=== PATIENT | female | born 1935 | race Caucasian/White ===

== ENCOUNTER 2016-03-23 18:00 | Emergency (ER) | payer OTHER ==
[~2016-03-23] VITALS: Ht 175.3 cm; Wt 111.1 kg
[~2016-03-23 18:00] MED LIST: AMIODARONE HCL200 M1 PO; AMMONIUM LACTA140 GM TOP; AVELOX400 MG PO; BACTRIM 400-801 EACH PO; ESCITALOPRAM OX20 MG PO; FUROSEMIDE20 M1 PO; HYDROCHLOROTHIA25 M1 PO; LEVOTHYROXINE25 MCG PO; METOPROLOL SUCC50 M2 PO; NIZORAL120 ML TOP; PERCOCET 325 MG1 TA2 PO; PRADAXA150 M1 PO; SIMVASTATIN20 M2 PO; VESICARE10 MG PO
--- NOTE | 2016-03-23 18:30 | ED UPPER/LOWER EXTREMITY COMPL ---
History of Present Illness General Chief Complaint: Hip Injury Stated Complaint: FALL; HIP PAIN Source: patient Exam Limitations: no limitations Vital Signs & Intake/Output Vital Signs & Intake/Output Vital Signs Date Time Temp Pulse Resp B/P Pulse O2 O2 Flow FiO2 Ox Delivery Rate 03/23 2039 97.8 65 19 160/72 96 Room Air 03/23 1811 99.5 66 20 166/73 94 Room Air Allergies Coded Allergies: No Known Allergies (03/23/16) Reconcile Medications Amiodarone HCl 200 MG TABLET 0.5 TAB PO DAILY HEART (Reported) Ammonium Lactate 140 GM CREAM..G. 1 ARTURO TOP BID FEET (Reported) Dabigatran Etexilate Mesylate (Pradaxa 150 MG) 150 MG CAPSULE 1 CAP PO BID BLOOD THINNER (Reported) Escitalopram Oxalate 20 MG TABLET 1 TAB PO DAILY MENTAL HEALTH (Reported) Furosemide 20 MG TABLET 1 TAB PO DAILY DIURETIC (Reported) Hydrochlorothiazide 25 MG TABLET 1 TAB PO DAILY BP (Reported) Ketoconazole (Nizoral) 120 ML SHAMPOO 1 % TOP BID RASH Levothyroxine Sodium 25 MCG TABLET 1 TAB PO DAILY THYROID (Reported) Metoprolol Succinate 50 MG TAB.ER.24H 1 TAB PO DAILY BP (Reported) Oxycodone HCl 5 MG TABLET 1-2 TAB PO Q8P PRN PAIN Simvastatin (Simvastatin*) 20 MG TABLET 1 TAB PO QPM CHOLESTEROL (Reported) Solifenacin Succinate (Vesicare) 10 MG TABLET 1 TAB PO DAILY BLADDER ( Reported) Sulfamethoxazole/Trimethoprim (Bactrim 400-80 MG Tablet) 1 EACH TABLET 0.5 TAB PO DAILY PROPHYLAXIS (Reported) Triage Note: TRIAGE: PT TO ER WITH C/C L HIP PAIN X FEW DAYS. STATES SHE BRUISED IT WHEN MOVING A CHEST. 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 AFTER THAT COULD NOT TOLERATE WEIGHT BEARING. SAW DR LOPEZ ORTHOPEDIST YESTERDAY FOR KNEE PROBLEMS AND WAS GIVEN PRESCRIPTION YESTERDAY FOR ?PAIN MEDICATION, DROPPED IT OFF AT [facility] TODAY BUT DIDN'T PICK IT UP YET. MEDICATED WITH TYLENOL AT TRIAGE PER PROTOCOL AND PATIENT REQUEST. Triage Nurses Notes Reviewed? yes Onset: Abrupt Duration: week(s):, getting worse Timing: recent history Severity: moderate, severe Pain/Injury Location: Left: Hip. No Modifying Factors: none HPI: 80-year-old female comes into emergency room for further evaluation of left hip pain. Patient reports his been going on for about a week. Patient reports that she was pushing a dresser and she used her left hip and since then was having some pain. Patient reports that she was able to ambulate as normal and does her water aerobics. Patient reports that tonight she bent down to supervisor opening and picking a 28 pound dog. When she lifted the dog she felt a pain in her left hip. Denies any falls. Difficulty ambulating since then. Sharp. (MICAELA BOWEN) Past History Travel History Traveled to [place] past 21 day No Medical History Any Pertinent Medical History? 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 No (MICAELA BOWEN) Review of Systems Review of Systems Constitutional: Reports: no symptoms. EENTM: Reports: no symptoms. Respiratory: Reports: no symptoms. Cardiovascular: Reports: no symptoms. Gastrointestinal/Abdominal: Reports: no symptoms. Genitourinary: Reports: no symptoms. Musculoskeletal: Reports: see HPI. Skin: Reports: no symptoms. Neurological/Psychological: Reports: no symptoms. Hematologic/Endocrine: Reports: no symptoms. Immunological: Reports: no symptoms. All Other Systems: Reviewed and Negative (MICAELA BOWEN) Physical Exam Physical Exam General Appearance: well developed/nourished, mild distress Head: atraumatic Eyes: Bilateral: normal appearance. Ears, Nose, Throat: normal ENT inspection, hearing grossly normal Neck: normal inspection Cardiovascular/Respiratory: no respiratory distress Back: normal inspection Hip Left: soft tissue tenderness, limited range of motion Knee Left: normal range of motion Neurologic/Tendon: normal sensation, normal motor functions, normal tendon functions, responds to pain, no evidence tendon injury, no pulse deficit Skin: intact, normal color, warm/dry Lymphatic: no anterior cervical damaso (MICAELA BOWEN) Progress Differential Diagnosis: contusion, dislocation, fracture, gout, septic arthritis , sprain, tendon injury Plan of Care: Orders Procedure Date/time Status XRY-LUMBOSACRAL SPINE AP & LAT 03/23 1827 Active XRY-HIP 2-3 VIEWS, LEFT 03/23 1827 Active Diagnostic Imaging: Viewed by Me: Radiology Read. Discussed w/RAD: Radiology Read. Radiology Impression: EXAM TYPE: RAD - XRY-HIP 2-3 VIEWS, LEFT EXAMINATION: XR HIP, LEFT CLINICAL INFORMATION: Left hip pain. COMPARISON: None. TECHNIQUE: AP and frog-leg lateral of the left hip. FINDINGS: No acute osseous abnormality involving the left hip. 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 No periprosthetic fractures. No perihardware lucencies to suggest mechanical hardware complications. No appreciable dislocation of the left hip. 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 No mechanical hardware complications. No periprosthetic fractures. No appreciable dislocation of the left hip. DICTATED BY: PRATIK HOLLIDAY MD DATE/TIME DICTATED: 03/23/161947 BOILER OPERATOR HELPER:[email or web address] DATE/TIME TRANSCRIBED:03/23/161947 , EXAM TYPE: RAD - XRY-HIP 2-3 VIEWS, LEFT EXAMINATION: XR HIP, LEFT CLINICAL INFORMATION: Left hip pain. COMPARISON: None. TECHNIQUE: AP and frog-leg lateral of the left hip. FINDINGS: No acute osseous abnormality involving the left hip. 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 No periprosthetic fractures. No perihardware lucencies to suggest mechanical hardware complications. No appreciable dislocation of the left hip. 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 No mechanical hardware complications. No periprosthetic fractures. No appreciable dislocation of the left hip. DICTATED BY: PARADISE HOLLIDAY MDENNA DATE/TIME DICTATED:03/23/161947 BOILER OPERATOR HELPER:[email or web address] DATE/TIME TRANSCRIBED:03/23/161947 Comments: 03/23/2016 8:51:56 PM Patient is able to ambulate after oxycodone. Patient feels much better. Nontoxic-appearing. In no apparent distress. Patient seen by Dr. cameron. There were no falls. Patient counseled on oxycodone and side effects. Return if any other concerns. (MI FU,MICAELA) Departure Departure Disposition: HOME OR SELF CARE Condition: Stable Clinical Impression Primary Impression: Low back strain Secondary Impressions: Strain of left hip Referrals: LINDEN FENG,DORIS Shen (PCP/Family) Additional Instructions: Take oxycodone as prescribed. Rest. Follow-up with your primary care doctor and your orthopedic doctor. Return if any other concerns. Please go over all results of today's visit with your primary care doctor. Contact your primary care doctor to let them know you were here in the emergency room. There may be nonspecific findings which may not be related to your visit today here in the emergency room but may require further evaluation and chronic monitoring by your primary care doctor. If you had a laceration today the chance of foreign body always remains. You should follow-up with your primary care doctor for recheck in 3-5 days for a wound check. If you had an x-ray done there is a chance that a fracture could have been missed on initial read and you should follow-up with your primary care doctor for repeat x-rays if symptoms persist. If your blood pressure was elevated here in the emergency room please have rechecked by her primary care doctor within the next 48 hours by your primary care doctor. If you were prescribed a narcotic here in the emergency room or any type of controlled substances you're not allowed to drive while taking this medication or operate any type of heavy machinery. Narcotics can make you feel lightheaded dizziness nausea and can cause constipation. You may need to supervisor opening and picking a stool softener. Thank you for choosing [facility] emergency room. Please return to the emergency room immediately if you have any other concerns worsening of symptoms. Departure Forms: Customer Survey General Discharge Information Prescriptions: Current Visit Scripts Oxycodone HCl 1-2 TAB PO Q8P PRN PAIN #15 TAB (MICAELA BOWEN) PA/VIDEOGAME DESIGNER Co-Sign Statement Statement: ED Attending supervision documentation- [X] I saw and evaluated the patient. I have also reviewed all the pertinent lab results and diagnostic results. I agree with the findings and the plan of care as documented in the PA's/VIDEOGAME DESIGNER's documentation. [X] I have reviewed the ED Record and agree with the PA's/VIDEOGAME DESIGNER's documentation. [] Additions or exceptions (if any) to the PAs/VIDEOGAME DESIGNER's note and plan are summarized below: [] (SHANELLE FENG,ODILON)
--- NOTE | 2016-03-23 19:53 | RADIOLOGY REPORT ---
EXAMINATION: XR HIP, LEFT CLINICAL INFORMATION: Left hip pain. COMPARISON: None. TECHNIQUE: AP and frog-leg lateral of the left hip. FINDINGS: No acute osseous abnormality involving the left hip. 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 No periprosthetic fractures. No perihardware lucencies to suggest mechanical hardware complications. No appreciable dislocation of the left hip. 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 No mechanical hardware complications. No periprosthetic fractures. No appreciable dislocation of the left hip.
--- NOTE | 2016-03-23 19:55 | RADIOLOGY REPORT ---
EXAMINATION: XR LUMBOSACRAL SPINE CLINICAL INFORMATION: Left hip pain. COMPARISON: None. TECHNIQUE: AP and lateral views of the lumbosacral spine were obtained. FINDINGS: AP and lateral views of the lumbar spine demonstrate severe multilevel degenerative disc disease and facet arthrosis of the lumbar spine, characterized by intervertebral disc space narrowing, endplate sclerosis and juxta marginal endplate osteophyte formation. Degenerative changes appear most significant at L1-L2. There is chronic appearing compression deformity of the L1 vertebral body with less than 25% disc height loss centrally. There is mild right convex curvature of the lumbar spine. No acute lumbar vertebral compression deformities are noted. There is extensive atherosclerosis of the imaged infrarenal abdominal aorta. IMPRESSION: Severe multilevel degenerative disc disease and facet arthrosis of the imaged lumbar spine without visible acute vertebral compression deformity or subluxation. Chronic appearing compression deformity involving the L1 vertebral body with less than 25% disc height loss centrally.
[2016-03-23] MEDS ORDERED: OXYCODONE HCL5 M1 PO (20:21)
[2016-03-23 20:40] VITALS: BP 160/72
== END 2016-03-23 20:41 ==
LOC: ERH 18:00
DX: S39.012A Strain of muscle, fascia and tendon of lower back, initial encounter (principal); S76.012A Strain of muscle, fascia and tendon of left hip, initial encounter; X58.XXXA Exposure to other specified factors, initial encounter
CPT/HCPCS: 72100; 73502-LT

== ENCOUNTER 2016-03-29 15:40 | Emergency (ER) | payer OTHER ==
[~2016-03-29] VITALS: Ht 175.3 cm; Wt 111.1 kg
[~2016-03-29 15:40] MED LIST changes: +OXYCODONE HCL5 M1 PO
[2016-03-29 17:32] LABS: ABSOLUTE BASOPHIL COUNT 0 /CUMM (0.0-0.2); ABSOLUTE EOSINOPHIL COUNT 0.1 /CUMM (0.0-0.7); ABSOLUTE GRANULOCYTE CT 3.6 /CUMM (1.4-6.5); ABSOLUTE LYMPH COUNT 1.7 /CUMM (1.2-3.4); ABSOLUTE MONOCYTE COUNT 0.4 /CUMM (0.10-0.60); BASOPHIL % 0.5 % (0.0-2.0); EOSINOPHIL % 1.3 % (0-5); GRANULOCYTE % 61.8 % (42.2-75.2); HEMATOCRIT 39.7 % (37-47); MEAN CORPUSCULAR HGB 31.1 PG (27.0-31.0); MEAN CORPUSCULAR HGB CONC 33.6 G/DL (33.0-37.0); MEAN CORPUSCULAR VOLUME 92.4 FL (81.0-99.0); MEAN PLATELET VOLUME 7.3 FL (7.4-10.4); PLATELET COUNT 157 /CUMM (130-400); RBC DISTRIBUTION WIDTH 13.3 % (11.5-14.5); RED BLOOD CELL CT 4.29 /CUMM (4.20-5.40); WHITE BLOOD CELL COUNT 5.8 /CUMM (4.8-10.8)
--- NOTE | 2016-03-29 17:41 | ED NECK/BACK PAIN COMPLAINT ---
History of Present Illness General Chief Complaint: Low Back Pain/Injury Stated Complaint: NO RELIEF OF BACK PAIN (SEEN 03/25) Source: patient, family Exam Limitations: no limitations Vital Signs & Intake/Output Vital Signs & Intake/Output Vital Signs Date Time Temp Pulse Resp B/P Pulse O2 O2 Flow FiO2 Ox Delivery Rate 03/29 1906 97.5 66 18 174/74 94 03/29 1551 99.2 60 20 136/73 98 Room Air Allergies Coded Allergies: No Known Allergies (03/23/16) Reconcile Medications Amiodarone HCl 200 MG TABLET 0.5 TAB PO DAILY HEART (Reported) Ammonium Lactate 140 GM CREAM..G. 1 ARTURO TOP BID FEET (Reported) Dabigatran Etexilate Mesylate (Pradaxa 150 MG) 150 MG CAPSULE 1 CAP PO BID BLOOD THINNER (Reported) Escitalopram Oxalate 20 MG TABLET 1 TAB PO DAILY MENTAL HEALTH (Reported) Furosemide 20 MG TABLET 1 TAB PO DAILY DIURETIC (Reported) Hydrochlorothiazide 25 MG TABLET 1 TAB PO DAILY BP (Reported) Ketoconazole (Nizoral) 120 ML SHAMPOO 1 % TOP BID RASH Levothyroxine Sodium 25 MCG TABLET 1 TAB PO DAILY THYROID (Reported) Metoprolol Succinate 50 MG TAB.ER.24H 1 TAB PO DAILY BP (Reported) Nitrofurantoin Monohyd/M-Cryst (Macrobid 100 MG Capsule) 100 MG CAPSULE 1 CAP PO BID UTI with food Oxycodone HCl 5 MG TABLET 1-2 TAB PO Q8P PRN PAIN Oxycodone HCl/Acetaminophen (Percocet 5-325 MG Tablet) 5 MG-325 MG TABLET 1-2 TAB PO Q8P PRN PAIN Simvastatin (Simvastatin*) 20 MG TABLET 1 TAB PO QPM CHOLESTEROL (Reported) Solifenacin Succinate (Vesicare) 10 MG TABLET 1 TAB PO DAILY BLADDER ( Reported) Sulfamethoxazole/Trimethoprim (Bactrim 400-80 MG Tablet) 1 EACH TABLET 0.5 TAB PO DAILY PROPHYLAXIS (Reported) Triage Note: PT TO ED C/O LEFT HIP/BACK PAIN. PT WAS SEEN MONDAY FOR SAME, WAS ADVISED TO BE ADMITTED AND PT DECLINED. PT RETURNS TODAY FOR CONTINUED PAIN. PAIN IS WORSE WITH AMBULATION. HAS BEEN TAKING PO PAIN MEDS WITH RELIEF. Triage Nurses Notes Reviewed? yes Onset: Abrupt Duration: week(s):, constant Timing: recent history Quality/Severity: moderate, severe Location: lumbar spine HPI: 80-year-old female comes into emergency room for complaints of left lower back pain and left hip pain this been going on over the past week. Patient was seen here the other day and had x-rays done. Patient reports that the oxycodone helps with her pain. Patient reports that she initially had injured it when she was moving a dresser with her left hip. Patient reports that she had been picked up a dog and felt a pop in the left side of her lower back and hip which pushed her over the edge. Patient has been having pain since then. Denies any abdominal pain chest pain shortness of breath. Denies any other associated symptoms. (MICAELA BOWEN) Past History Travel History Traveled to [place] past 21 day No Medical History Any Pertinent Medical History? 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 No (MICAELA BOWEN) Review of Systems Review of Systems Constitutional: Reports: no symptoms. Eyes: Reports: no symptoms. Ears, Nose, Throat, Mouth: Reports: no symptoms. Respiratory: Reports: no symptoms. Cardiovascular: Reports: no symptoms. Gastrointestinal/Abdominal: Reports: no symptoms. Musculoskeletal: Reports: see HPI. Skin: Reports: no symptoms. Neurological/Psychological: Reports: no symptoms. All Other Systems: Reviewed and Negative (MICAELA BOWEN) Physical Exam Physical Exam General Appearance: well developed/nourished, mild distress Head: atraumatic Eyes: Bilateral: normal appearance. Ears, Nose, Throat, Mouth: hearing grossly normal, moist mucous membrane Neck: normal inspection, full range of motion Respiratory: no respiratory distress Cardiovascular: regular rate/rhythm Back: normal inspection, TENDERNESS LEFT LOWER BACK,FULL RANGE OF MOTION OF LEFT HIP, Extremities: normal range of motion Motor: Deficit L4 Right: No Deficit L4 Left: No Deficit L5 Right: No Deficit L5 Left: No Deficit S1 Right: No Deficit S1 Right: No Neurologic/Psych: awake, alert, oriented x 3, normal mood/affect Skin: intact, normal color, warm/dry (MICAELA BOWEN) Progress Differential Diagnosis: cauda equina syn, herniated disc, myofascial strain, pyelo/UTI, sciatica, spinal cord inj, thoracic outlet syn, T/L spine injury, ureterolithiasis Plan of Care: Orders Procedure Date/time Status Add-on Test (ER Only) 03/29 1840 Active CULTURE,URINE 03/29 1800 Active TOTAL TRIODOTHYROXINE 03/29 172 Complete COMPREHENSIVE METABOLIC PANEL 03/29 1725 Complete TSH REFLEX 03/29 172 Complete FREE T4 03/29 1721 Complete URINALYSIS 03/29 1715 Complete CBC WITHOUT DIFFERENTIAL 03/29 1715 Complete Laboratory Tests 03/29/16 1800: Urine Color YEL, Urine Clarity HAZY H, Urine pH 6.0, Ur Specific Amory 1.015, Urine Protein NEG, Urine Ketones NEG, Urine Nitrite NEG, Urine Bilirubin NEG, Urine Urobilinogen 0.2, Ur Leukocyte Esterase MOD H, Ur Microscopic SEDIMENT EXAMINED, Urine RBC 5-10 H, Urine WBC > 75 H, Ur Epithelial Cells MANY H, Urine Hemoglobin MOD H, Urine Glucose NEG 03/29/161725: Anion Gap 11, Estimated GFR 53 L, BUN/Creatinine Ratio 18.0, Glucose 89, Calcium 8.6, Total Bilirubin 0.8, AST 64 H, ALT 34, Alkaline Phosphatase 55, Total Protein 6.9, Albumin 4.0, Globulin 2.9, Albumin/Globulin Ratio 1.4, Free T4 1.42, Total T3 1.02, TSH &T3 &Free T4 Intrp 8.000 H, CBC w Diff NO MAN DIFF REQ, RBC 4.29, MCV 92.4, MCH 31.1 H, RDW 13.3, MPV 7.3 L, Gran % 61.8, Lymphocytes % 28.6, Monocytes % 7.8, Eosinophils % 1.3, Basophils % 0.5, Absolute Granulocytes 3.6, Absolute Lymphocytes 1.7, Absolute Monocytes 0.4, Absolute Eosinophils 0.1, Absolute Basophils 0, PUBS MCHC 33.6 03/29/161715: Sodium Cancelled, Potassium Cancelled, Chloride Cancelled, Carbon Dioxide Cancelled, Anion Gap Cancelled, BUN Cancelled, Creatinine Cancelled, BUN/ Creatinine Ratio Cancelled, Glucose Cancelled, Calcium Cancelled, Total Bilirubin Cancelled, AST Cancelled, ALT Cancelled, Alkaline Phosphatase Cancelled, Total Protein Cancelled, Albumin Cancelled, Globulin Cancelled, Albumin/Globulin Ratio Cancelled Microbiology 03/29 1800 URINE ROUT: Urine Culture - RECD Diagnostic Imaging: Viewed by Me: CT Scan. Discussed w/RAD: CT Scan. Radiology Impression: SERVICE DATE: 03/29/16 EXAM TYPE: CAT - CT ABD & PELVIS W/O IV CONTRAS EXAMINATION: CT ABDOMEN AND PELVIS WITHOUT CONTRAST CLINICAL INFORMATION: Left hip and low back pain. COMPARISON: Lumbar spine and hip radiograph from 03/23/2016. TECHNIQUE: Contiguous axial thin section helical images of the abdomen and pelvis were performed without oral or IV contrast. The data set was reformatted in the coronal and sagittal planes and reviewed on an independent workstation. DLP: 1097 mGy-cm. FINDINGS: There is mild dependent bibasilar atelectasis. There is scarring or atelectasis within the posterior inferior segment of the lingula. The visualized lung bases are otherwise clear. The visualized portions of the heart are unremarkable. There is a small hiatal hernia. The liver is of normal size and attenuation without intrahepatic biliary ductal dilation. There are several hepatic cysts present. The largest is within the dome of the liver and measures approximately 4.3 cm. A normal gallbladder is identified. There is no wall thickening or discernible pericholecystic fluid. The spleen, pancreas, adrenal glands are unremarkable. Both kidneys are of normal size and attenuation without hydronephrosis. Within the interpole region of the right kidney, there is a 3 mm nonobstructive calculus. Within the upper pole of the left kidney, there is a 1 mm nonobstructive calculus. There is no abdominal free fluid. There is neither mesenteric nor retroperitoneal lymphadenopathy. There is sigmoid diverticulosis without evidence of diverticulitis. Otherwise, unremarkable unopacified loops of small and large bowel are identified. There is no pelvic free fluid. The urinary bladder is unremarkable. There is neither pelvic nor inguinal lymphadenopathy. Bone windows : Neither sclerotic nor lytic bone lesions are identified. Moderate degenerative changes present within the lumbar spine with disc height loss and anterior osteophyte formation. Bilateral hip prostheses are intact. There are healed posterior lower left rib fractures. IMPRESSION: 3 mm nonobstructive right renal calculus. 1 mm nonobstructive left upper pole renal calculus. Sigmoid diverticulosis without evidence of diverticulitis. Small hiatal hernia. Intact bilateral hip prostheses. DICTATED BY: ANTON CAMACHO MD DATE/TIME DICTATED:1824 WAITER/WAITRESS ECONOMY CLASS:ROSEMARIE (MI PA,[place]) Departure Departure Disposition: HOME OR SELF CARE Condition: Stable Clinical Impression Primary Impression: Arthritis Secondary Impressions: Back pain, UTI (urinary tract infection) Referrals: DORIS CHEATHAM MD (PCP/Family) Additional Instructions: Take Percocet as prescribed. Follow-up with orthopedic doctor provided. Return if any concerns worsening symptoms. Take Macrobid as prescribed. Please go over all results of today's visit with your primary care doctor. Contact your primary care doctor to let them know you were here in the emergency room. There may be nonspecific findings which may not be related to your visit today here in the emergency room but may require further evaluation and chronic monitoring by your primary care doctor. If you had a laceration today the chance of foreign body always remains. You should follow-up with your primary care doctor for recheck in 3-5 days for a wound check. If you had an x-ray done there is a chance that a fracture could have been missed on initial read and you should follow-up with your primary care doctor for repeat x-rays if symptoms persist. If your blood pressure was elevated here in the emergency room please have rechecked by her primary care doctor within the next 48 hours by your primary care doctor. If you were prescribed a narcotic here in the emergency room or any type of controlled substances you're not allowed to drive while taking this medication or operate any type of heavy machinery. Narcotics can make you feel lightheaded dizziness nausea and can cause constipation. You may need to picking machine operator a stool softener. Thank you for choosing [facility] emergency room. Please return to the emergency room immediately if you have any other concerns worsening of symptoms. Departure Forms: Customer Survey General Discharge Information Prescriptions: Current Visit Scripts Oxycodone HCl/Acetaminophen (Percocet 5-325 MG Tablet) 1-2 TAB PO Q8P PRN PAIN #20 TAB Nitrofurantoin Monohyd/M-Cryst (Macrobid 100 MG Capsule) 1 CAP PO BID #14 CAP with food Comments 03/29/2016 7:31:39 PM Pain is consistent with musculoskeletal pain. Patient started on oral antibiotic even though she is not having symptoms of urinary tract infection. Urine culture sent. No CVA tenderness. No fever. No concern for pyelonephritis. Pain is in left lower hip region. Reproducible. Consistent with muscle skeletal pain. Patient seen by Dr. Quintero. (MICAELA BOWEN) PA/ROUTE SALES MANAGER Co-Sign Statement Statement: ED Attending supervision documentation- [x] I saw and evaluated the patient. I have also reviewed all the pertinent lab results and diagnostic results. I agree with the findings and the plan of care as documented in the PA's/ROUTE SALES MANAGER's documentation. [] I have reviewed the ED Record and agree with the PA's/ROUTE SALES MANAGER's documentation. [] Additions or exceptions (if any) to the PAs/ROUTE SALES MANAGER's note and plan are summarized below: [] (CHAS QUINTERO DO
--- NOTE | 2016-03-29 18:33 | CT SCAN REPORT ---
EXAMINATION: CT ABDOMEN AND PELVIS WITHOUT CONTRAST CLINICAL INFORMATION: Left hip and low back pain. COMPARISON: Lumbar spine and hip radiograph from 03/23/2016. TECHNIQUE: Contiguous axial thin section helical images of the abdomen and pelvis were performed without oral or IV contrast. The data set was reformatted in the coronal and sagittal planes and reviewed on an independent workstation. DLP: 1097 mGy-cm. FINDINGS: There is mild dependent bibasilar atelectasis. There is scarring or atelectasis within the posterior inferior segment of the lingula. The visualized lung bases are otherwise clear. The visualized portions of the heart are unremarkable. There is a small hiatal hernia. The liver is of normal size and attenuation without intrahepatic biliary ductal dilation. There are several hepatic cysts present. The largest is within the dome of the liver and measures approximately 4.3 cm. A normal gallbladder is identified. There is no wall thickening or discernible pericholecystic fluid. The spleen, pancreas, adrenal glands are unremarkable. Both kidneys are of normal size and attenuation without hydronephrosis. Within the interpole region of the right kidney, there is a 3 mm nonobstructive calculus. Within the upper pole of the left kidney, there is a 1 mm nonobstructive calculus. There is no abdominal free fluid. There is neither mesenteric nor retroperitoneal lymphadenopathy. There is sigmoid diverticulosis without evidence of diverticulitis. Otherwise, unremarkable unopacified loops of small and large bowel are identified. There is no pelvic free fluid. The urinary bladder is unremarkable. There is neither pelvic nor inguinal lymphadenopathy. Bone windows: Neither sclerotic nor lytic bone lesions are identified. Moderate degenerative changes present within the lumbar spine with disc height loss and anterior osteophyte formation. Bilateral hip prostheses are intact. There are healed posterior lower left rib fractures. IMPRESSION: 3 mm nonobstructive right renal calculus. 1 mm nonobstructive left upper pole renal calculus. Sigmoid diverticulosis without evidence of diverticulitis. Small hiatal hernia. Intact bilateral hip prostheses.
[2016-03-29] MEDS ORDERED: PERCOCET 5-3251 EACH PO (18:59)
[2016-03-29 19:06] VITALS: BP 174/74
[2016-03-29] MEDS ORDERED: MACROBID 100 M100 MG PO (19:12)
== END 2016-03-29 19:53 ==
LOC: ERH 15:40
PROVIDERS: Physician Assistant Medical
DX: N39.0 Urinary tract infection, site not specified (principal); M19.90 Unspecified osteoarthritis, unspecified site; M54.5 Low back pain
CPT/HCPCS: 74176; 81001; 87086

== ENCOUNTER 2016-07-10 09:36 | Inpatient (IN) | payer OTHER ==
[~2016-07-10] VITALS: Ht 175.3 cm; Wt 101.2 kg
[~2016-07-10 09:36] MED LIST changes: +MACROBID 100 M100 MG PO; +PERCOCET 5-3251 EACH PO
--- NOTE | 2016-07-10 09:45 | NUR ---
DR WORTHINGTON AT BEDSIDE, RT AT BEDSIDE
--- NOTE | 2016-07-10 09:45 | NUR ---
PT BIBA FROM HOME WITH C/O INCREASING SOB SINCE LAST NIGHT. PER EMS UPON ARRIVAL THERE O2 SATS IN 70'S. PT PLACED ON BIPAP BY EMS WITH O2 SATS IMPROVING TO 95%. PT HAS BILATERAL RALES/RHONCHI T/O LUNG KOO
--- NOTE | 2016-07-10 09:51 | ED DYSPNEA/ASTHMA COMPLAINT ---
History of Present Illness General Chief Complaint: Dyspnea (COPD, CHF, Other) Stated Complaint: BIBA DYSPNEA Source: patient Exam Limitations: clinical condition, SEVERE DYSPNEA Vital Signs & Intake/Output Vital Signs & Intake/Output Vital Signs Date Time Temp Pulse Resp B/P B/P Pulse O2 O2 Flow FiO2 Mean Ox Delivery Rate 07/11 0845 57 132/68 07/11 0844 57 132/68 07/11 0809 99.0 57 20 132/68 96 Nasal 3.0L Cannula 07/11 0040 76 96 07/11 0000 BIPAP 40% 07/10 2253 98.4 60 20 104/62 98 BIPAP 40% 07/10 2112 66 120/68 07/10 1600 Nasal 3.0L Cannula 07/10 1548 97.8 70 18 138/66 96 07/10 1408 Nasal 3.0L Cannula 07/10 1358 67 96 07/10 1356 97.6 69 18 151/78 98 Nasal 3.0L Cannula 07/10 1248 68 20 178/80 100 BIPAP 40% 07/10 1226 67 100 07/10 1212 99.1 67 20 166/78 100 BIPAP 40% ED Intake and Output 07/11 0000 07/10 1200 Intake Total 610 Output Total 2600 50 Balance -1989 Intake, IV 10 Intake, Oral 600 Output, Urine 2600 50 Patient 235 lb Weight Weight Reported by Patient Measurement Method Allergies Coded Allergies: No Known Allergies (03/23/16) Reconcile Medications Amiodarone HCl 200 MG TABLET 1 TAB PO DAILY HEART (Reported) Ammonium Lactate 140 GM CREAM..G. 1 ARTURO TOP BID FEET (Reported) Dabigatran Etexilate Mesylate (Pradaxa 150 MG) 150 MG CAPSULE 1 CAP PO BID BLOOD THINNER (Reported) Escitalopram Oxalate 20 MG TABLET 1 TAB PO DAILY MENTAL HEALTH (Reported) Furosemide 20 MG TABLET 1 TAB PO DAILY DIURETIC (Reported) Hydrochlorothiazide 25 MG TABLET 1 TAB PO DAILY BP (Reported) Ketoconazole (Nizoral) 120 ML SHAMPOO 1 % TOP BID RASH Levothyroxine Sodium 25 MCG TABLET 2 TAB PO DAILY THYROID (Reported) Metoprolol Succinate 50 MG TAB.ER.24H 1 TAB PO DAILY BP (Reported) Nitrofurantoin Monohyd/M-Cryst (Macrobid 100 MG Capsule) 100 MG CAPSULE 1 CAP PO BID UTI with food Oxycodone HCl 5 MG TABLET 1-2 TAB PO Q8P PRN PAIN Oxycodone HCl/Acetaminophen (Percocet 5-325 MG Tablet) 5 MG-325 MG TABLET 1-2 TAB PO Q8P PRN PAIN Simvastatin (Simvastatin*) 20 MG TABLET 1 TAB PO QPM CHOLESTEROL (Reported) Solifenacin Succinate (Vesicare) 10 MG TABLET 1 TAB PO DAILY BLADDER ( Reported) Sulfamethoxazole/Trimethoprim (Bactrim 400-80 MG Tablet) 1 EACH TABLET 0.5 TAB PO DAILY PROPHYLAXIS (Reported) Triage Nurses Notes Reviewed? yes HPI: Patient presents for evaluation of severe shortness of breath. Patient found by paramedics with an oxygen saturation in the low 70s. On presentation to the emergency department the patient is on a BiPAP mask and consequently history taking is extremely limited. The patient indicates however that her breathing has improved. Past History Travel History Traveled to [place] past 21 day No Medical History Any Pertinent Medical History? 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 No Review of Systems Review of Systems Constitutional: Reports: no symptoms. EENTM: Reports: no symptoms. Respiratory: Reports: no symptoms. Cardiovascular: Reports: no symptoms. GI: Reports: no symptoms. Genitourinary: Reports: no symptoms. Musculoskeletal: Reports: no symptoms. Skin: Reports: no symptoms. Neurological/Psychological: Reports: no symptoms. Hematologic/Endocrine: Reports: no symptoms. Immunologic/Allergic: Reports: no symptoms. All Other Systems: Reviewed and Negative Physical Exam Physical Exam Respiratory: SEE BELOW Comments: Gen.: Well-nourished, well-developed, severe respiratory distress. Head: Normocephalic, atraumatic. Eyes: Mild lid swelling Ears: Normal inspection bilaterally Nose: Normal inspection Throat/mouth : Tacky mucosa Neck: Supple, full range of motion, no goiter, no JVD Heart: Regular rate and rhythm Lungs: Diffuse rales and rhonchi globally diminished air entry Chest: Nontender Back: Normal range of motion Abdomen: Soft, nondistended, normal bowel sounds Extremities: Normal range of motion grossly, equal radial pulses, no cyanosis, bilateral 2+ lower extremity pitting edema with chronic skin changes (no apparent cellulitis) Neurologic: Cranial nerves grossly intact, Skin: warm and dry Psychiatric: Unable to assess Core Measures ACS in differential dx? No Severe Sepsis Present: No Septic Shock Present: No Progress Differential Diagnosis: asthma, AMI, bronchitis, CHF, COPD, pneumonia, unstable angina Plan of Care: Orders Procedure Date/time Status CBC WITHOUT DIFFERENTIAL 07/12 0600 Active BASIC ELECTROLYTES PLUS BUN&CR 07/12 0600 Active Heart Healthy Diet 07/11 L Complete Heart Healthy Diet 07/11 D Active BLOOD CULTURE 07/11 0842 Active TROPONIN LEVEL 07/11 0640 Complete CBC WITHOUT DIFFERENTIAL 07/11 0600 Complete BASIC ELECTROLYTES PLUS BUN&CR 07/11 0600 Complete Lab Add-on Test 07/11 UNK Active Heart Healthy Diet 07/10 D Complete TROPONIN LEVEL 07/10 2200 Complete EKG 07/10 2200 Active CULTURE,URINE 07/10 1822 Active TROPONIN LEVEL 07/10 1600 Complete EKG 07/10 1600 Active Dwyer, Insertion/Removal/Asses 07/10 1454 Active Weight 07/10 1342 Active Vital Signs 07/10 1339 Active Teach/Educate 07/10 1339 Active Pain Treatment and Response 07/10 1339 Active Nutritional Intake, Monitor 07/10 1339 Active Isolation 07/10 1339 Active Intake & Output 07/10 1339 Active Patient Care Conference 07/10 1339 Active Activity/Ambulation 07/10 1339 Active Pathway - chart 07/10 1247 Active House Staff 07/10 1247 Active Patient Data 07/10 1247 Active Patient Data 07/10 1205 Active Misc Message 07/10 1132 Active ED Holding Orders 07/10 1132 Active Vital Signs 07/10 1132 Active Code Status 07/10 1132 Active Intake & Output 07/10 0958 Active OXYGEN SETUP (GEN) 07/10 UNK Complete VTE Mechanical Prophylaxis 07/10 UNK Complete Telemetry/Condemnation Engineer 07/10 UNK Active Current Medications Sig/Allison Start time Last Medication Dose Stop Time Status Admin Ceftriaxone Sodium 1,000 MG DAILY 07/11 1000 AC (Rocephin) Escitalopram Oxalate 20 MG DAILY 07/11 1000 AC 07/11 (Lexapro) 0844 Omeprazole 20 MG DAILY AC 07/11 1000 AC (Prilosec) Furosemide 40 MG 7:30 AM, & 4:30 PM 07/11 0900 AC 07/11 (Lasix) 1041 Docusate Sodium 100 MG BID PRN 07/11 0845 AC 07/11 (Colace) 0843 Levothyroxine Sodium 0.05 MG DAILY AC 07/11 0700 AC 07/11 (Synthroid) 0508 Atorvastatin Calcium 10 MG 1700 07/10 1700 AC 07/10 (Lipitor) 1722 Metoprolol Tartrate 50 MG BID 07/10 1349 AC 07/11 (Lopressor) 0844 Dabigatran 150 MG BID 07/10 1346 AC 07/11 (PRADAXA) 0845 Amiodarone HCl 200 MG DAILY 07/10 1345 AC 07/11 (Cordarone) 0845 Acetaminophen 650 MG Q6P PRN 07/10 1245 AC (Tylenol) Laboratory Tests 07/11/16 0640: Anion Gap 7, Estimated GFR 60, BUN/Creatinine Ratio 25.6 H, Troponin I 0.12 *H, CBC w Diff NO MAN DIFF REQ, RBC 3.66 L, MCV 90.7, MCH 30.5, RDW 14.9 H, MPV 8.0, Gran % 59.9, Lymphocytes % 29.0, Monocytes % 8.7, Eosinophils % 1.9, Basophils % 0.5, Absolute Granulocytes 3.2, Absolute Lymphocytes 1.6, Absolute Monocytes 0.5, Absolute Eosinophils 0.1, Absolute Basophils 0, PUBS MCHC 33.6 07/10/16 2210: Troponin I 0.27 *H 07/10/16 1632: Troponin I 0.34 *H Microbiology 07/11 1035 BLOOD: Blood Culture - RECD 07/11 1010 BLOOD: Blood Culture - RECD 07/10 1915 URINE ROUT: Urine Culture - RES GRAM NEGATIVE RODS Diagnostic Imaging: Discussed w/RAD: Radiology Read. CXR Impression: PATIENT: LENNY RIZZO PRESENT AGE: 80 PATIENT ACCOUNT NO: [id number] : 33 LOCATION: [facility] ORDERING PHYSICIAN: CHAS WORTHINGTON MD SERVICE DATE: 07/10/16 EXAM TYPE: RAD - XRY-PORTABLE CHEST XRAY EXAMINATION: XR PORTABLE CHEST CLINICAL INFORMATION: Dyspnea. COMPARISON: Chest done on 04/01/2011. TECHNIQUE: Portable frontal view of the chest was obtained. FINDINGS: Mild diffuse prominent interstitial lung markings are noted with nonspecific bilateral perihilar and lower lobar airspace disease, new since 04/01/2011. Possible differential diagnostic consideration would include CHF versus infection or combination thereof. There is no definite pleural effusion present. The cardiomediastinal silhouette is borderline enlarged. Multiple old healed left hemithoracic rib fractures are present. IMPRESSION: Interval development of mild diffuse prominent linear interstitial markings and nonspecific bibasilar, perihilar airspace disease, may represent CHF, infection or combination thereof. Follow-up radiograph to document resolution is recommended. DICTATED BY: DESTINY PEREYRA MD DATE/TIME DICTATED:1012 WEAPONS ENGINEER:ROSEMARIE DATE/TIME TRANSCRIBED:07/10/161012 CONFIDENTIAL, DO NOT COPY WITHOUT APPROPRIATE AUTHORIZATION. <Electronically signed in Other Vendor System> SIGNED BY: DESTINY PEREYRA MD 07/10/16 1036 Initial ED EKG: NSR, rate (88) Rhythm Strip: normal sinus rhythm Comments: 07/10/2016 10:31:22 AM patient appears more comfortable and she states that her breathing has improved. Vital signs are stable. Oxygen saturation 96% on BiPAP. 07/10/2016 10:55:39 AM patient's case discussed with the hospitalist. Patient evaluated by Dr. Nichole in the emergency department. Departure Departure Disposition: STILL A PATIENT Condition: Stable Clinical Impression Primary Impression: CHF (congestive heart failure) Qualifiers: Congestive heart failure type: unspecified congestive heart failure type Congestive heart failure chronicity: acute on chronic Qualified Code: I50.9 - Heart failure, unspecified Secondary Impressions: Hypertensive urgency Referrals: DORIS CHEATHAM MD (PCP/Family) Departure Forms: Customer Survey General Discharge Information Admission Note Spoke With: BELINDA FENG,ERNESTO Documentation of Exam: Documentation of any treatments & extenuating circumstances including Concerns Regarding Discharge (functional status, medication knowledge or non-compliance, living conditions, etc.) that warrant an admission rather than observation: Patient presents in acute CHF exacerbation requiring BiPAP. Given his patient's advanced age and multiple medical comorbidities she is at very high risk of respiratory failure and . She requires continued BiPAP, continuous pulse oximetry, continuous cardiac monitoring (patient has a history of atrial fibrillation) and treatment with nitroglycerin and Lasix. Daily weights and intake and output should be recorded and treated accordingly. Pulmonary and cardiology consultation should be considered. Serial EKGs and troponins should also be obtained. Given this patient's advanced age and multiple medical comorbidities I feel she will require a multiple day hospitalization. Critical Care Note Critical Care Note Critical Care Time: 30-74 min
--- NOTE | 2016-07-10 10:01 | NUR ---
PCXR AT BEDSIDE
[2016-07-10 10:10] LABS: ABSOLUTE BASOPHIL COUNT 0 /CUMM (0.0-0.2); ABSOLUTE EOSINOPHIL COUNT 0.2 /CUMM (0.0-0.7); ABSOLUTE GRANULOCYTE CT 6.6 /CUMM (1.4-6.5); ABSOLUTE LYMPH COUNT 3.3 /CUMM (1.2-3.4); ABSOLUTE MONOCYTE COUNT 0.7 /CUMM (0.10-0.60); BASOPHIL % 0.3 % (0.0-2.0); EOSINOPHIL % 1.5 % (0-5); GRANULOCYTE % 61.4 % (42.2-75.2); MEAN CORPUSCULAR HGB 30.4 PG (27.0-31.0); MEAN CORPUSCULAR HGB CONC 33.3 G/DL (33.0-37.0); MEAN CORPUSCULAR VOLUME 91.1 FL (81.0-99.0); MEAN PLATELET VOLUME 8.1 FL (7.4-10.4); PLATELET COUNT 183 /CUMM (130-400); RBC DISTRIBUTION WIDTH 14.9 % (11.5-14.5); RED BLOOD CELL CT 4.49 /CUMM (4.20-5.40); WHITE BLOOD CELL COUNT 10.7 /CUMM (4.8-10.8)
--- NOTE | 2016-07-10 10:36 | RADIOLOGY REPORT ---
EXAMINATION: XR PORTABLE CHEST CLINICAL INFORMATION: Dyspnea. COMPARISON: Chest done on 04/01/2011. TECHNIQUE: Portable frontal view of the chest was obtained. FINDINGS: Mild diffuse prominent interstitial lung markings are noted with nonspecific bilateral perihilar and lower lobar airspace disease, new since 04/01/2011. Possible differential diagnostic consideration would include CHF versus infection or combination thereof. There is no definite pleural effusion present. The cardiomediastinal silhouette is borderline enlarged. Multiple old healed left hemithoracic rib fractures are present. IMPRESSION: Interval development of mild diffuse prominent linear interstitial markings and nonspecific bibasilar, perihilar airspace disease, may represent CHF, infection or combination thereof. Follow-up radiograph to document resolution is recommended.
--- NOTE | 2016-07-10 10:40 | NUR ---
PT STATES BREATHING IS MUCH BETTER. PT REMAINS ON BIPAP O2 SATS 97%
--- NOTE | 2016-07-10 10:57 | NUR ---
REPORT TO MICH RODRIGUEZ
--- NOTE | 2016-07-10 11:25 | NUR ---
DR. GRACE HERE TO EVALUATE.
--- NOTE | 2016-07-10 11:38 | NUR ---
RETING, RESPIRATIONS NON-LABORED, TOLERAING BI-PAP AND SIPS OF WATER.
--- NOTE | 2016-07-10 12:11 | NUR ---
HOUSE STAFF HERE TO EVALUATE. 02 SAT 99-100% ON BI-PAP.
--- NOTE | 2016-07-10 12:24 | NUR ---
PT ASSIGNED TO #[id number]
--- NOTE | 2016-07-10 12:50 | History & Physical ---
RAFICONCEPCION 07/10/16 1249: General Information and HPI MD Statement: I have seen and personally examined LENNY RIZZO and documented this H&P. The patient is a 80 year old F who presented with a patient stated chief complaint of shortness of breath Source of Information: patient, family, EMS Exam Limitations: clinical condition History of Present Illness: Patient is a obese 80-year-old woman with past medical history significant for A. fib on pradaxa, history of coronary artery disease(status post stents placed about 5-6 years ago) history of hypertension and hyperlipidemia, history of hyperthyroidism urinary incontinence presented to the ED for the evaluation of acute onset shortness of breath. Patient was on BiPAP at the time of evaluation to most of the history was obtained from the . As per patient has been doing fine until this morning when she woke up short of breath associated with dry cough. Patient also reported generalized weakness and malaise. Denied any chest discomfort or palpitations, lightheadedness/dizziness at that time. She couldn' t able to catch her breath so 911 was called in, at the time of EMS arrival patient was found to be saturating at 70s, she was put on BiPAP by the EMS and was emergently brought to the ED for further assessment. On further inquiring from the patient recently had a cardiac cath done about 2 weeks ago at [facility], the results of which are inconclusive. Patient has been regularly following up with a underwriting director at . There has been no alteration in her medications recently, as per . No history of any acute recent illness. Denies any history of diarrhea or constipation. Patient never smoked, drinks 1-2 beers on every other day. Allergies/Medications Allergies: Coded Allergies: No Known Allergies (03/23/16) Home Med list Amiodarone HCl 200 MG TABLET 1 TAB PO DAILY HEART (Reported) Ammonium Lactate 140 GM CREAM..G. 1 ARTURO TOP BID FEET (Reported) Dabigatran Etexilate Mesylate (Pradaxa 150 MG) 150 MG CAPSULE 1 CAP PO BID BLOOD THINNER (Reported) Escitalopram Oxalate 20 MG TABLET 1 TAB PO DAILY MENTAL HEALTH (Reported) Furosemide 20 MG TABLET 1 TAB PO DAILY DIURETIC (Reported) Hydrochlorothiazide 25 MG TABLET 1 TAB PO DAILY BP (Reported) Ketoconazole (Nizoral) 120 ML SHAMPOO 1 % TOP BID RASH Levothyroxine Sodium 25 MCG TABLET 2 TAB PO DAILY THYROID (Reported) Metoprolol Succinate 50 MG TAB.ER.24H 1 TAB PO DAILY BP (Reported) Nitrofurantoin Monohyd/M-Cryst (Macrobid 100 MG Capsule) 100 MG CAPSULE 1 CAP PO BID UTI with food Oxycodone HCl 5 MG TABLET 1-2 TAB PO Q8P PRN PAIN Oxycodone HCl/Acetaminophen (Percocet 5-325 MG Tablet) 5 MG-325 MG TABLET 1-2 TAB PO Q8P PRN PAIN Simvastatin (Simvastatin*) 20 MG TABLET 1 TAB PO QPM CHOLESTEROL (Reported) Solifenacin Succinate (Vesicare) 10 MG TABLET 1 TAB PO DAILY BLADDER ( Reported) Sulfamethoxazole/Trimethoprim (Bactrim 400-80 MG Tablet) 1 EACH TABLET 0.5 TAB PO DAILY PROPHYLAXIS (Reported) Past History Travel History Traveled to [place] past 21 day No Medical History Neurological: NONE EENT: NONE Cardiovascular: AFIB, hypertension, hyperlipidemia Respiratory: NONE Gastrointestinal: NONE Hepatic: NONE Renal: PROLAPSED BLADDER Musculoskeletal: fracture, osteoarthritis Psychiatric: NONE Endocrine: NONE Blood Disorders: NONE Cancer(s): NONE 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 Psychosocial History ETOH Use: denies use Illicit Drug Use: denies illicit drug use Review of Systems Review of Systems Constitutional: Reports: weakness. Denies: chills, diaphoresis, malaise. EENTM: Denies: blurred vision, double vision, visual changes. Cardiovascular: Denies: chest pain, edema, orthopena. Respiratory: Denies: cough, hemoptysis, orthopnea. GI: Denies: abdominal pain, bloating, constipation. Genitourinary: Denies: discharge, dysuria, frequency. Musculoskeletal: Denies: gout, joint pain, joint swelling. Skin: Denies: change in skin color, change in hair/nails, erythema. Neurological/Psychological: Denies: ataxia, cognitive dysfunction, confusion. Hematologic/Endocrine: Denies: bruising, bleeding. Exam & Diagnostic Data Last 24 Hrs of Vital Signs/I&O Vital Signs Date Time Temp Pulse Resp B/P B/P Pulse O2 O2 Flow FiO2 Mean Ox Delivery Rate 07/10 1358 67 96 07/10 1356 97.6 69 18 151/78 98 Nasal 3.0L Cannula 07/10 1248 68 20 178/80 100 BIPAP 40% 07/10 1226 67 100 07/10 1212 99.1 67 20 166/78 100 BIPAP 40% 07/10 1029 BIPAP 07/10 1018 98.2 72 24 158/72 97 CPAP 40% 07/10 0948 80 97 07/10 0945 98.5 90 20 195/96 91 CPAP Intake & Output 07/10 1600 07/10 0800 07/10 0000 Intake Total Output Total 50 Balance -50 Output, Urine 50 Physical Exam General Appearance Alert Skin No Rashes HEENT Atraumatic, PERRLA, EOMI Neck Supple, No JVD Cardiovascular Regular Rate, Normal S1, Normal S2 Lungs bilateral ronchi with crackles on exam Abdomen Normal Bowel Sounds, Soft, No Tenderness Extremities bilateral 2 + pitting edema Vascular Normal Pulses Last 24 Hrs of Labs/Isaac: Laboratory Tests 07/10/16 0958: Urine Color YEL, Urine Clarity HAZY H, Urine pH 6.5, Ur Specific [place] 1.020, Urine Protein 30 H, Urine Ketones NEG, Urine Nitrite NEG, Urine Bilirubin NEG, Urine Urobilinogen 1.0, Ur Leukocyte Esterase SMALL H, Ur Microscopic SEDIMENT EXAMINED, Urine RBC 5-10 H, Urine WBC 25-50 H, Ur Epithelial Cells MOD H, Urine Bacteria MOD H, Urine Hemoglobin MOD H, Urine Glucose NEG 07/10/16 0952: Anion Gap 13, Estimated GFR 60, BUN/Creatinine Ratio 26.7 H, Glucose 170 H, Calcium 8.9, Magnesium 1.8, Total Bilirubin 0.9, AST 26, ALT 33, Alkaline Phosphatase 71, Troponin I 0.04, Tpj-U-Hyitetxlvdu Pept 1610 H, Total Protein 7.0, Albumin 4.1, Globulin 2.9, Albumin/Globulin Ratio 1.4, CBC w Diff NO MAN DIFF REQ, RBC 4.49, MCV 91.1, MCH 30.4, RDW 14.9 H, MPV 8.1, Gran % 61.4, Lymphocytes % 30.6, Monocytes % 6.2, Eosinophils % 1.5, Basophils % 0.3, Absolute Granulocytes 6.6 H, Absolute Lymphocytes 3.3, Absolute Monocytes 0.7 H, Absolute Eosinophils 0.2, Absolute Basophils 0, PUBS MCHC 33.3 07/10/16 0950: Magnesium Cancelled Microbiology 07/10 1040 BLOOD: Blood Culture - RECD Assessment/Plan Assessment: This is a is a obese 80-year-old woman with past medical history significant for A. fib on pradaxa, history of coronary artery disease(status post stents placed about 5-6 years ago) history of hypertension and hyperlipidemia, history of hyperthyroidism urinary incontinence presented to the ED for the evaluation of acute onset shortness of breath. She was found to be in acute respiratory distress by the EMS and was put on BiPAP. Pertinent labs on admission: Normal WBC count, H&H stable, elevated BUN 44, elevated proBNP, 1610, normal LFTs, Urinalysis positive for small leukocyte esterase, EKG showed normal sinus rhythm heart rate in the range of 80s with UT prolongation to 16 QTC 499 Chest x-ray : Interval development of mild diffuse prominent linear interstitial markings and nonspecific bibasilar, perihilar airspace disease, may represent CHF, infection or combination thereof. Follow-up radiograph to document resolution is recommended. Assessment; 1. Acute shortness of breath at rest requiring BiPAP(acute hypoxic respiratory failure) due to acute on chronic decompensated heart failure: * Patient has been admitted to telemetry floor * She received 1 dose of IV Lasix 40 mg in the ED and was kept on BiPAP with a close respiratory assessment. Currently patient is off BiPAP saturating more than 92% on 3 L. * Continue oxygen to keep saturations above 92% * Cardiology consult with Dr. Torres has been obtained. * Continue with aggressive diuresis with 40 of Lasix twice a day * Maintain strict ins and outs and daily weight checks * Will obtain echocardiogram today. 2. History of significant coronary artery disease(status post stents) with recent cardiac catheterization on 06/28/2016. * Cardiac catheterization showed a patent stents in left main coronary artery s mid LAD , first diagonal arteries. No evidence of significant significant coronary disease was noted. EF of 60%. * Continue home medications including simvastatin, metoprolol, Pradaxa. * Will rule out acute coronary syndrome provided recent history of cardiac catheterization. * Will obtain records from [facility] of recent Catheterization. * Prolonged QTc ,avoid QTc prolonging drugs 3. History of atrial fibrillation * Continue home medications including amiodarone and Pradaxa. 4. History of uncontrolled hypertension(blood pressure in the ED at the time of arrival 195/96) * Called the pharmacy and confirmed the dose of Toprol-XL 50 mg 2 tabs in the morning and 1 tab at bedtime, but apparently patient has not been taking the correct dosage for a while. * As per Dr. Torres recommendations we'll hold Toprol-XL for now start the patient on Lopressor 50 mg twice a day and titrate the dose according to the blood pressure. 5. History of hyperlipidemia: * Continue home dose of simvastatin. 6. History of urinary incontinence: * Continue Vesicare 10 mg daily 7. History of hypothyroidism * Continue home dose of levothyroxine 50 mL mcg . Mild to moderate pain controlled with Tylenol DVT prophylaxis per DEXA Patient is full code As Ranked By This Provider Problem List: 1. CHF (congestive heart failure) Qualifiers Congestive heart failure type: unspecified congestive heart failure type Congestive heart failure chronicity: acute on chronic Qualified Code: I50.9 - Heart failure, unspecified Core Measures/Miscellaneous Acute Coronary Syndrome ACS Diagnosis: No Cerebrovascular Accident CVA/TIA Diagnosis: No Congestive Heart Failure CHF Diagnosis: Yes NOLA/ARB for EF <40%: No Venous Thromboembolism VTE Risk Factors: Acute medical illness, Age > 40 [facility] d/t: VTE low risk, No contraindications No VTE Pharm Prophylaxis d/t: VTE low risk, No contraindications VTE Diagnosis: No VTE Type: NONE VTE Confirmed by (Test): NONE Severe Sepsis Severe Sepsis Present: No Septic Shock Septic Shock Present: No Miscellaneous Documentation Attending Case Discussed With: ERNESTO TREVINO MD Primary Care Physician: DORIS CHEATHAM MD Patient sees these Specialists Dr Torres Level of Patient Care: Telemetry Resident Review Statement Resident Statement: examined this patient, discussed with internal specialist ERNESTO TREVINO 07/10/16 1258: Attending MD Review Statement Attending Statement Attending MD Statement: examined this patient, discuss w/resident/PA/SPEECH LANG PATH THERAPIST, agreed w/resident/PA/SPEECH LANG PATH THERAPIST, discussed with family, reviewed EMR data (avail), discussed with nursing, discussed with case mgmt, reviewed images, amended to note Attending Assessment/Plan: 80 o/f with pmh of Afib on pradaxa, CAD remote stent in past, htn, hyperlipidemia, urinary incontinence, hypothyroidism. ASSESSMENT 1. Dyspnea on rest, acute hypoxic repsiratory failure 2. Acute on chronic CHF decompensated, +2 pedal edema, needing bipap 3. Afib on pradaxa 4. H/o CAD stent in past 5. Hypertension unocntrolled. 6. Hyperlipidmeia 7. Urinary incontinence 8. Hypothyroidism PLAN admit to inpatient telemetry monitoring cardio consult, obtain echo if not done in past, i/v diuretics, strict I/O, daily weights. BP control, resume home meds, monitor bp. c/w home meds for afib, confirm meds. gi/dvt prophyalxis full code.
[2016-07-10 13:56] VITALS: BP 151/78
--- NOTE | 2016-07-10 14:19 | Cons- Cardiology ---
General Information and HPI Consulting Request Date of Consult: 07/10/16 Requested By: ERNESTO TREVINO MD Reason for Consult: Shortness of breath with new onset of congestive heart failure Source of Information: patient, family, old records Exam Limitations: clinical condition History of Present Illness: The patient is an 80-year-old white female, overweight, who is usually followed by Dr. 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 The patient is admitted to the hospital via the emergency room with acute onset of shortness of breath and evidence of congestive heart failure. Per the patient's and the patient, she has never had any issues with similar symptoms in the past. Her past medical history is remarkable for coronary artery disease, status post multiple stents. Per the thinned, the patient had a recent follow-up catheterization which showed patent stents. She also has a history of atrial fibrillation on Pradaxa, hypertension, hyperlipidemia, hypothyroidism, etc. Apparently the patient was doing well until earlier today when she woke up short of breath. She also noted a dry cough. She denied any chest discomfort, palpitations, etc. 911 was notified and the patient was brought to the emergency room with shorts of breath, low oxygen saturations, and chest x-ray evidence of congestive heart failure. She was placed on BiPAP with some improvement in her status. Review of the outpatient records shows that the patient had a cardiac catheterization performed on 06/28/2016. Cardiac catheterization showed a right dominant circulation. Angiography demonstrated a patent left main coronary artery stent. Patent stent in the mid LAD was noted. The first diagonal stent was patent. No other significant coronary disease was noted. Her ejection fraction was 60%. Allergies/Medications Allergies: Coded Allergies: No Known Allergies (03/23/16) Home Med List: Amiodarone HCl 200 MG TABLET 1 TAB PO DAILY HEART (Reported) Ammonium Lactate 140 GM CREAM..G. 1 ARTURO TOP BID FEET (Reported) Dabigatran Etexilate Mesylate (Pradaxa 150 MG) 150 MG CAPSULE 1 CAP PO BID BLOOD THINNER (Reported) Escitalopram Oxalate 20 MG TABLET 1 TAB PO DAILY MENTAL HEALTH (Reported) Furosemide 20 MG TABLET 1 TAB PO DAILY DIURETIC (Reported) Hydrochlorothiazide 25 MG TABLET 1 TAB PO DAILY BP (Reported) Ketoconazole (Nizoral) 120 ML SHAMPOO 1 % TOP BID RASH Levothyroxine Sodium 25 MCG TABLET 2 TAB PO DAILY THYROID (Reported) Metoprolol Succinate 50 MG TAB.ER.24H 1 TAB PO DAILY BP (Reported) Nitrofurantoin Monohyd/M-Cryst (Macrobid 100 MG Capsule) 100 MG CAPSULE 1 CAP PO BID UTI with food Oxycodone HCl 5 MG TABLET 1-2 TAB PO Q8P PRN PAIN Oxycodone HCl/Acetaminophen (Percocet 5-325 MG Tablet) 5 MG-325 MG TABLET 1-2 TAB PO Q8P PRN PAIN Simvastatin (Simvastatin*) 20 MG TABLET 1 TAB PO QPM CHOLESTEROL (Reported) Solifenacin Succinate (Vesicare) 10 MG TABLET 1 TAB PO DAILY BLADDER ( Reported) Sulfamethoxazole/Trimethoprim (Bactrim 400-80 MG Tablet) 1 EACH TABLET 0.5 TAB PO DAILY PROPHYLAXIS (Reported) Past History Travel History Traveled to [place] past 21 day No Medical History Blood Transfusion Hx: No Neurological: NONE EENT: NONE Cardiovascular: AFIB, CAD, hypertension, hyperlipidemia, history of stents to the left main coronary artery, LAD, and first diagonal branch Respiratory: NONE Gastrointestinal: NONE Hepatic: NONE Renal: PROLAPSED BLADDER Musculoskeletal: osteoarthritis, FRACTURE RT ARM Psychiatric: NONE Endocrine: NONE Blood Disorders: NONE Cancer(s): NONE 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 Psychosocial History Where Do You Live? Home Smoking Status: Unknown If Ever Smoked ETOH Use: denies use Illicit Drug Use: denies illicit drug use Exam & Diagnostic Data Vital Signs and I&O Vital Signs Date Time Temp Pulse Resp B/P B/P Pulse O2 O2 Flow FiO2 Mean Ox Delivery Rate 07/10 1408 Nasal 3.0L Cannula 07/10 1358 67 96 07/10 1356 97.6 69 18 151/78 98 Nasal 3.0L Cannula 07/10 1248 68 20 178/80 100 BIPAP 40% 07/10 1226 67 100 07/10 1212 99.1 67 20 166/78 100 BIPAP 40% 07/10 1029 BIPAP 07/10 1018 98.2 72 24 158/72 97 CPAP 40% 07/10 0948 80 97 07/10 0945 98.5 90 20 195/96 91 CPAP Intake & Output 07/10 1600 07/10 0800 07/10 0000 07/09 1600 07/09 0807/09 0000 Intake Total Output Total 50 Balance -50 Output, Urine 50 Patient 235 lb Weight Weight Reported by Patient Measurement Method Physical Exam: Physical Exam General Appearance Alert, mild respiratory distress, on BiPAP. Skin normal HEENT Atraumatic, PERRLA, EOMI Neck Supple, No JVD, carotids normal bilaterally. No bruits heard Cardiovascular Regular Rate, Normal S1, Normal S2, 1/6 systolic murmur left sternal border Lungs bilateral rales and rhonchi Abdomen Normal Bowel Sounds, Soft, No Tenderness Extremities bilateral 1-2 + pitting edema Vascular Normal Pulses Labs/Isaac Results: Laboratory Tests 07/10 07/10 0958 0952 Chemistry Sodium (137 - 145 mmol/L) 141 Potassium (3.5 - 5.1 mmol/L) 4.5 Chloride (98 - 107 mmol/L) 104 Carbon Dioxide (22 - 30 mmol/L) 25 Anion Gap (5 - 16) 13 BUN (7 - 17 mg/dL) 24 H Creatinine (0.5 - 1.0 mg/dL) 0.9 Estimated GFR (>60 ml/min) 60 BUN/Creatinine Ratio (7 - 25 %) 26.7 H Glucose (65 - 99 mg/dL) 170 H Calcium (8.4 - 10.2 mg/dL) 8.9 Magnesium (1.6 - 2.3 mg/dL) 1.8 Total Bilirubin (0.2 - 1.3 mg/dL) 0.9 AST (14 - 36 U/L) 26 ALT (9 - 52 U/L) 33 Alkaline Phosphatase (<127 U/L) 71 Troponin I (< 0.11 ng/ml) 0.04 Npy-V-Cztailyxwtu Pept (<125 pg/mL) 1610 H Total Protein (6.3 - 8.2 g/dL) 7.0 Albumin (3.5 - 5.0 g/dL) 4.1 Globulin (1.9 - 4.2 gm/dL) 2.9 Albumin/Globulin Ratio (1.1 - 2.2 %) 1.4 Hematology CBC w Diff NO MAN DIFF REQ WBC (4.8 - 10.8 /CUMM) 10.7 RBC (4.20 - 5.40 /CUMM) 4.49 Hgb (12.0 - 16.0 G/DL) 13.6 Hct (37 - 47 %) 41.0 MCV (81.0 - 99.0 FL) 91.1 MCH (27.0 - 31.0 PG) 30.4 RDW (11.5 - 14.5 %) 14.9 H Plt Count (130 - 400 /CUMM) 183 MPV (7.4 - 10.4 FL) 8.1 Gran % (42.2 - 75.2 %) 61.4 Lymphocytes % (20.5 - 51.1 %) 30.6 Monocytes % (1.7 - 9.3 %) 6.2 Eosinophils % (0 - 5 %) 1.5 Basophils % (0.0 - 2.0 %) 0.3 Absolute Granulocytes (1.4 - 6.5 /CUMM) 6.6 H Absolute Lymphocytes (1.2 - 3.4 /CUMM) 3.3 Absolute Monocytes (0.10 - 0.60 /CUMM) 0.7 H Absolute Eosinophils (0.0 - 0.7 /CUMM) 0.2 Absolute Basophils (0.0 - 0.2 /CUMM) 0 PUBS MCHC (33.0 - 37.0 G/DL) 33.3 Urines Urine Color (YEL,AMB,STR) YEL Urine Clarity (CLEAR) HAZY H Urine pH (5.0 - 8.0) 6.5 Ur Specific [place] (1.001 - 1.035) 1.020 Urine Protein (NEG,<30 MG/DL) 30 H Urine Ketones (NEG) NEG Urine Nitrite (NEG) NEG Urine Bilirubin (NEG) NEG Urine Urobilinogen (0.1 - 1.0 EU/dl) 1.0 Ur Leukocyte Esterase (NEG) SMALL H Ur Microscopic SEDIMENT EXAMINED Urine RBC (0 - 5 /HPF) 5-10 H Urine WBC (0 - 2 /HPF) 25-50 H Ur Epithelial Cells (NONE,FEW) MOD H Urine Bacteria (NEG/NONE) MOD H Urine Hemoglobin (NEG) MOD H Urine Glucose (N MG/DL) NEG 07/10 0950 Chemistry Magnesium Cancelled Diagnostic Data CXR Results Mild diffuse prominent interstitial lung markings are noted with nonspecific bilateral perihilar and lower lobar airspace disease, new since 04/01/2011. Possible differential diagnostic consideration would include CHF versus infection or combination thereof. There is no definite pleural effusion present. The cardiomediastinal silhouette is borderline enlarged. Multiple old healed left hemithoracic rib fractures are present. IMPRESSION: Interval development of mild diffuse prominent linear interstitial markings and nonspecific bibasilar, perihilar airspace disease, may represent CHF, infection or combination thereof. Follow-up radiograph to document resolution is recommended. Assessment/Plan Assessment/Plan Assessment: 1. Acute onset shortness of breath with evidence of congestive heart failure on chest x-ray and examination and mildly elevated proBNP. 2. History of coronary artery disease, status post multiple stents. Recent cardiac catheterization showing patent stents 3. Hypertension 4. Hyperlipidemia 5. Lower extremity edema Recommendations: -Admit the patient one or telemetry -Obtain outside records for further review -Continue current medication regimen for now -Serial troponins to rule out ischemia -Echocardiogram to assess left ventricular function and valvular function -IV Lasix twice a day with maintenance of negative fluid balance and monitoring of strict intakes, outputs, daily weights. -Further plans in 24 hours -Please check follow-up laboratories in the morning including BUN, creatinine, electrolyte, magnesium, etc. Consult Acknowledgment - Thank you for your consult request.
[2016-07-10 15:48] VITALS: BP 138/66
--- NOTE | 2016-07-10 17:07 | ECHOCARDIOGRAM REPORT ---
LENNY RIZZO Age: 80 : 1935 Gender: F Exam Date: 07/10/2016 14:09 Exam Location: [address] Ht (in): 69 Wt (lb): 235 BSA: 2.32 BP: 151 / 78 Ordering Physician: CONCEPCION MCKEE MD Referring Physician: Celio Torres MD Technologist: Cynthia Valentin [facility] Room Number: 176 Indications: CARDIOMYOPATHY Rhythm: Atrial fibrillation Technical Quality: Fair FINDINGS Left Ventricle Normal size left ventricle. No obvious regional wall motion abnormalities. Left ventricular wall thickness mildly increased. Normal left ventricular ejection fraction estimated at 60-65%. Right Ventricle Right ventricle at upper limits of normal. Right Atrium Normal right atrial size. Left Atrium Mild left atrial dilatation. Mitral Valve Mitral valve thickened. [id number] mitral regurgitation. Aortic Valve Trileaflet aortic valve. Diffuse thickening (sclerosis) of the aortic valve cusps without reduced excursion. No aortic stenosis. Trace to mild aortic regurgitation. Tricuspid Valve Tricuspid valve not well visualized, grossly normal. Mild tricuspid regurgitation. Right ventricular systolic pressure estimated at 42 mmHg. Pulmonic Valve Pulmonic valve not well visualized, grossly normal. Trace to mild pulmonic regurgitation. Pericardium Minimal pericardial effusion (normal variant). Great Vessels Normal size aortic root and proximal ascending aorta. CONCLUSIONS 1. Mild aortic sclerosis is present with minimal to mild aortic insufficiency. 2. MItral leaflet thickening is present with mild to moderate mitral insufficiency and mild left atrial enlargement. 3. A physiologic pericardial effusion is present. 4. The left ventricular chamber size is normal with mild Left ventricular hypertrophy and disproportionate thickening of the upper interventricular septum with a normal ejection fraction and no resting wall motion abnormlaities. 5. The right heart chambers are upper normal in size with minimal to mild tricuspid and pulmonic insufficiency and no evidence of significant pulmonary hypertension. 6. No prior study was available for comparison. Celio Torres M.D. (Electronically Signed) Final Date: 10 Jul 2016 17:06 MEASUREMENTS (Male / Female) Normal Values 2D ECHO LV Diastolic Diameter PLAX 4.6 cm 4.2 - 5.9 / 3.9 - 5.3 cm LV Systolic Diameter PLAX 3.1 cm 2.1 - 4.0 cm LV Fractional Shortening PLAX 32.6 % 25 - 46 % LV Ejection Fraction 2D Teich 61.0 % IVS Diastolic Thickness 1.4 cm LVPW Diastolic Thickness 1.4 cm LV Relative Wall Thickness 0.6 RV Internal Dim ED PLAX 3.7 cm 1.9 - 3.8 cm LVOT Diameter 2.2 cm Aortic Root Diameter 2.9 cm LA Systolic Diameter LX 4.5 cm 3.0 - 4.0 / 2.7 - 3.8 cm LA Volume 60.0 cm 18 - 58 / 22 - 52 cm Ascending Aorta Diameter 3.2 cm DOPPLER AV Peak Velocity 113.0 cm/s AV Peak Gradient 5.1 mmHg AV Mean Velocity 88.1 cm/s AV Mean Gradient 3.0 mmHg AV Velocity Time Integral 26.1 cm LVOT Peak Velocity 114.0 cm/s LVOT Peak Gradient 5.2 mmHg LVOT Mean Velocity 80.4 cm/s LVOT Mean Gradient 3.0 mmHg LVOT Velocity Time Integral 24.9 cm LVOT Stroke Volume 94.7 cm AV Area Cont Eq vti 3.6 cm AV Area Cont Eq pk 3.8 cm MV Peak Velocity 82.8 cm/s MV Peak Gradient 2.7 mmHg MV Mean Velocity 49.4 cm/s MV Mean Gradient 1.0 mmHg Mitral E Point Velocity 77.5 cm/s Mitral A Point Velocity 42.9 cm/s Mitral E to A Ratio 1.8 MV PHT Velocity 87.6 cm/s MV Deceleration [place] 326.0 cm/s MV Pressure Half Time 80.6 ms MV Area PHT 2.7 cm MV Deceleration Time 201.0 ms TR Peak Velocity 302.0 cm/s TR Peak Gradient 36.5 mmHg Right Atrial Pressure 5.0 mmHg Pulmonary Artery Systolic Pressu 41.5 mmHg Right Ventricular Systolic Press 41.5 mmHg PV Peak Velocity 68.2 cm/s PV Peak Gradient 1.9 mmHg PV Mean Velocity 46.6 cm/s PV Mean Gradient 1.0 mmHg PV Velocity Time Integral 12.2 cm LV E' Lateral Velocity 12.3 cm/s Mitral E to LV E' Lateral Ratio 6.3 LV E' Septal Velocity 6.2 cm/s Mitral E to LV E' Septal Ratio 12.4
[2016-07-10 22:53] VITALS: BP 104/62
--- NOTE | 2016-07-11 05:45 | Event Note ---
Event Note Event Note: Microbiology from lab called about the growth of gram-positive cocci in aerobic medium in one of the 2 bottles. For now patient is afebrile and there is no leukocytosis on CBC. Patient is clinically stable. We will hold off on any antibiotics for now and wait for identification of the organism.
[2016-07-11 08:07] LABS: ABSOLUTE BASOPHIL COUNT 0 /CUMM (0.0-0.2); ABSOLUTE EOSINOPHIL COUNT 0.1 /CUMM (0.0-0.7); ABSOLUTE GRANULOCYTE CT 3.2 /CUMM (1.4-6.5); ABSOLUTE LYMPH COUNT 1.6 /CUMM (1.2-3.4); ABSOLUTE MONOCYTE COUNT 0.5 /CUMM (0.10-0.60); BASOPHIL % 0.5 % (0.0-2.0); EOSINOPHIL % 1.9 % (0-5); GRANULOCYTE % 59.9 % (42.2-75.2); MEAN CORPUSCULAR HGB 30.5 PG (27.0-31.0); MEAN CORPUSCULAR HGB CONC 33.6 G/DL (33.0-37.0); MEAN CORPUSCULAR VOLUME 90.7 FL (81.0-99.0); PLATELET COUNT 118 /CUMM (130-400); RBC DISTRIBUTION WIDTH 14.9 % (11.5-14.5); RED BLOOD CELL CT 3.66 /CUMM (4.20-5.40); WHITE BLOOD CELL COUNT 5.4 /CUMM (4.8-10.8)
[2016-07-11 08:09] VITALS: BP 132/68
[2016-07-11 08:43] LABS: HEMATOCRIT 33.2 % (37-47)
--- NOTE | 2016-07-11 08:44 | PN- Housestaff ---
Subjective Follow-up For: Acute on chronic congestive heart failure/CHF exacerbation UTI Complaints: no complaints Tele-Events Since Last Visit: Sinus bradycardia, heart rate ranges from 55-59, no overnight telemetry events Subjective: He was seen and examined this morning. She was lying comfortably in bed without any complaints. She admits that her eating is better now. She denied any chest pain which she had yesterday. She remained afebrile , her blood tube gram- positive cocci and urine grew gram-negative rods. He admits that he multiple surgeries in the past but apparently she didn't have any UTI symptoms for now. WBC count is normal, she has mild dry cough. Review of Systems Constitutional: Reports: weakness. Denies: chills, diaphoresis, fever. EENTM: Denies: blurred vision, double vision. Cardiovascular: Reports: edema. Denies: chest pain, orthopena, palpitations. Respiratory: Reports: cough. Gastrointestinal: Denies: diarrhea, distention, bowel incontinence. Genitourinary: Denies: dysuria, frequency, hematuria. Objective Last 24 Hrs of Vital Signs/I&O Vital Signs Date Time Temp Pulse Resp B/P B/P Pulse O2 O2 Flow FiO2 Mean Ox Delivery Rate 07/11 0845 57 132/68 07/11 0844 57 132/68 07/11 0809 99.0 57 20 132/68 96 Nasal 3.0L Cannula 07/11 0040 76 96 07/11 0000 BIPAP 40% 07/10 2253 98.4 60 20 104/62 98 BIPAP 40% 07/10 2112 66 120/68 07/10 1600 Nasal 3.0L Cannula 07/10 1548 97.8 70 18 138/66 96 07/10 1408 Nasal 3.0L Cannula 07/10 1358 67 96 07/10 1356 97.6 69 18 151/78 98 Nasal 3.0L Cannula 07/10 1248 68 20 178/80 100 BIPAP 40% 07/10 1226 67 100 07/10 1212 99.1 67 20 166/78 100 BIPAP 40% 07/10 1029 BIPAP 07/10 1018 98.2 72 24 158/72 97 CPAP 40% 07/10 0948 80 97 07/10 0945 98.5 90 20 195/96 91 CPAP Intake & Output 07/11 1600 07/11 0800 07/11 0000 Intake Total 100 610 Output Total 200 1050 Balance -100 -440 Intake, IV 0 10 Intake, Oral 100 600 Number 0 Bowel Movements Output, Urine 200 1050 Patient 236 lb Weight Weight Lizeth Lift Measurement Method Physical Exam General Appearance: Alert, Oriented X3, Cooperative, No Acute Distress Skin: No Significant Lesion Cardiovascular: Regular Rate, Normal S1, Normal S2, No Murmurs Lungs: Normal Air Movement, mild rhonchi on the left base Abdomen: Soft, No Tenderness Neurological: Normal Speech Extremities: trace bilateral lower extremity edema Current Medications: Current Medications Sig/Allison Start time Last Medication Dose Route Stop Time Status Admin Acetaminophen 650 MG Q6P PRN 07/10 1245 AC PO Amiodarone HCl 200 MG DAILY 07/10 1345 AC 07/11 PO 0845 Atorvastatin Calcium 10 MG 1700 07/10 1700 AC 07/10 PO 1722 Dabigatran 150 MG BID 07/10 1346 AC 07/11 PO 0845 Docusate Sodium 100 MG BID PRN 07/11 0845 AC 07/11 PO 0843 Escitalopram Oxalate 20 MG DAILY 07/11 1000 AC 07/11 PO 0844 Furosemide 40 MG 7:30 AM, & 4:30 PM 07/11 0900 AC IV Furosemide 0 .STK-MED ONE 07/10 1208 DC IV Furosemide 40 MG ONCE ONE 07/10 1200 DC 07/10 IV PUSH 07/10 1201 1211 Ibuprofen 600 MG Q6P PRN 07/10 1245 AC PO Levothyroxine Sodium 0.05 MG DAILY AC 07/11 0700 AC 07/11 PO 0508 Metoprolol Tartrate 50 MG BID 07/10 1349 AC 07/11 PO 0844 Nitroglycerin 0 .STK-MED ONE 07/10 1222 DC TOP Nitroglycerin 0.5 GM ONCE ONE 07/10 1215 DC 07/10 TOP 07/10 1216 1221 Potassium Chloride 40 MEQ ONCE ONE 07/11 0845 DC PO 07/11 0846 Last 24 Hrs of Lab/Isaac Results Last 24 Hrs of Labs/Mics: Laboratory Tests 07/11/16 0640: Anion Gap 7, Estimated GFR 60, BUN/Creatinine Ratio 25.6 H, Troponin I Pending, CBC w Diff NO MAN DIFF REQ, RBC 3.66 L, MCV 90.7, MCH 30.5, RDW 14.9 H, MPV 8.0, Gran % 59.9, Lymphocytes % 29.0, Monocytes % 8.7, Eosinophils % 1.9, Basophils % 0.5, Absolute Granulocytes 3.2, Absolute Lymphocytes 1.6, Absolute Monocytes 0.5, Absolute Eosinophils 0.1, Absolute Basophils 0, PUBS MCHC 33.6 07/10/16 2210: Troponin I 0.27 *H 07/10/16 1632: Troponin I 0.34 *H 07/10/16 0958: Urine Color YEL, Urine Clarity HAZY H, Urine pH 6.5, Ur Specific [place] 1.020, Urine Protein 30 H, Urine Ketones NEG, Urine Nitrite NEG, Urine Bilirubin NEG, Urine Urobilinogen 1.0, Ur Leukocyte Esterase SMALL H, Ur Microscopic SEDIMENT EXAMINED, Urine RBC 5-10 H, Urine WBC 25-50 H, Ur Epithelial Cells MOD H, Urine Bacteria MOD H, Urine Hemoglobin MOD H, Urine Glucose NEG 07/10/16 0952: Anion Gap 13, Estimated GFR 60, BUN/Creatinine Ratio 26.7 H, Glucose 170 H, Calcium 8.9, Magnesium 1.8, Total Bilirubin 0.9, AST 26, ALT 33, Alkaline Phosphatase 71, Troponin I 0.04, [id number] Pept 1610 H, Total Protein 7.0, Albumin 4.1, Globulin 2.9, Albumin/Globulin Ratio 1.4, CBC w Diff NO MAN DIFF REQ, RBC 4.49, MCV 91.1, MCH 30.4, RDW 14.9 H, MPV 8.1, Gran % 61.4, Lymphocytes % 30.6, Monocytes % 6.2, Eosinophils % 1.5, Basophils % 0.3, Absolute Granulocytes 6.6 H, Absolute Lymphocytes 3.3, Absolute Monocytes 0.7 H, Absolute Eosinophils 0.2, Absolute Basophils 0, PUBS MCHC 33.3 07/10/16 0950: Magnesium Cancelled Microbiology 07/11 08 BLOOD: Blood Culture - ORD 07/11 841 BLOOD: Blood Culture - ORD 07/10 191 URINE ROUT: Urine Culture - RES GRAM NEGATIVE RODS 07/10 1040 BLOOD: Blood Culture - RES GRAM POSITIVE COCCI Assessment/Plan Assessment: Patient is a 20-year-old male with past medical history significant for congestive heart failure, atrial fibrillation, hypertension, hyperlipidemia, diabetes came worsening shortness of breath imaging study positive for congestive heart failure. Her urine grew gram-negative rods and urinalysis showed 25-50 WBCs with positive leukocyte esterase. Blood culture grew gram- positive cocci which most likely is contamination. Problem list 1. Acute onset shortness breath most likely congestive heart failure exacerbation 2. History of CAD, status post multiple stent placement with recent cardiac catheterization which showed patent stents 3. Hypertension 4. UTI 5. Hyperlipidemia Plan 1. Patient diabetes is well with negative fluid balance. We will continue 40 mg of Lasix twice a day for now and might reduce to 40 mg daily tomorrow. 2. Her blood group gram-positive cocci which most likely is contamination but we will send 2 more sets as only one set were sent yesterday. We will wait for another set of culture and sensitivity to come back. 3. Patient showed positive urinalysis with culture growing gram-negative rods. We'll start her on ceftriaxone. 4. Will continue her home medications including Robaxin, amiodarone, her Toprol was changed to Lopressor for admission. Her blood pressure remained stable. 5. We will continue supplemental oxygen to keep oxygen saturation more than 90% . 6. Patient had elevated troponins to 0.34 which was later on came down 0.27 then 0.12 most likely demand ischemia. Heart healthy diet Pharmacological DVT prophylaxis The shunt is full code Problem List: 1. CHF (congestive heart failure) 2. UTI (urinary tract infection) Pain Ratin Pain Location: Not applicable Pain Goal: Remain pain free Pain Plan: Tylenol Tomorrow's Labs & Rationales: CBC and basic electrolyte panel
--- NOTE | 2016-07-11 14:20 | PN- Cardiology ---
Subjective Subjective: The patient remains mildly dyspneic today. No other cardiac symptoms noted. Objective Vital Signs and I&Os Vital Signs Date Time Temp Pulse Resp B/P B/P Pulse O2 O2 Flow FiO2 Mean Ox Delivery Rate 07/11 1148 98.1 07/11 0845 57 132/68 07/11 0844 57 132/68 07/11 0809 99.0 57 20 132/68 96 Nasal 3.0L Cannula 07/11 0040 76 96 07/11 0000 BIPAP 40% 07/10 2253 98.4 60 20 104/62 98 BIPAP 40% 07/10 2112 66 120/68 07/10 1600 Nasal 3.0L Cannula 07/10 1548 97.8 70 18 138/66 96 Intake & Output 07/11 1600 07/11 0800 07/11 0000 07/10 1600 07/10 0800 07/10 0000 Intake Total 360 100 610 Output Total 200 1050 1600 Balance 360 -100 -440 -1600 Intake, IV 0 10 Intake, Oral 360 100 600 Number 0 Bowel Movements Output, Urine 200 1050 1600 Patient 236 lb 235 lb Weight Weight Lizeth Lift Reported by Patient Measurement Method Physical Exam: General Appearance Alert, very mild respiratory distress Skin normal HEENT Atraumatic, PERRLA, EOMI Neck Supple, No JVD, carotids normal bilaterally. No bruits heard Cardiovascular Regular Rate, Normal S1, Normal S2, 1/6 systolic murmur left sternal border Lungs bilateral rhonchi Abdomen Normal Bowel Sounds, Soft, No Tenderness Extremities bilateral 1-2 + pitting edema Vascular Normal Pulses Current Medications: Current Medications Sig/Allison Start time Last Medication Dose Route Stop Time Status Admin Acetaminophen 650 MG Q6P PRN 07/10 1245 AC PO Amiodarone HCl 200 MG DAILY 07/10 1345 AC 07/11 PO 0845 Atorvastatin Calcium 10 MG 1700 07/10 1700 AC 07/10 PO 1722 Ceftriaxone Sodium 1,000 MG DAILY 07/11 1000 AC IV Dabigatran 150 MG BID 07/10 1346 AC 07/11 PO 0845 Docusate Sodium 100 MG BID PRN 07/11 0845 AC 07/11 PO 0843 Escitalopram Oxalate 20 MG DAILY 07/11 1000 AC 07/11 PO 0844 Furosemide 40 MG 7:30 AM, & 4:30 PM 07/11 0900 AC 07/11 IV 1041 Ibuprofen 600 MG Q6P PRN 07/10 1245 DC PO Levothyroxine Sodium 0.05 MG DAILY AC 07/11 0700 AC 07/11 PO 0508 Metoprolol Tartrate 50 MG BID 07/10 1349 AC 07/11 PO 0844 Omeprazole 20 MG DAILY AC 07/11 1000 AC 07/11 PO 1208 Potassium Chloride 40 MEQ ONCE ONE 07/11 0845 DC 07/11 PO 07/11 0846 1042 Results Last 48 Hrs of Labs/Mics: Laboratory Tests 07/11/16 0640: Anion Gap 7, Estimated GFR 60, BUN/Creatinine Ratio 25.6 H, Troponin I 0.12 *H, CBC w Diff NO MAN DIFF REQ, RBC 3.66 L, MCV 90.7, MCH 30.5, RDW 14.9 H, MPV 8.0, Gran % 59.9, Lymphocytes % 29.0, Monocytes % 8.7, Eosinophils % 1.9, Basophils % 0.5, Absolute Granulocytes 3.2, Absolute Lymphocytes 1.6, Absolute Monocytes 0.5, Absolute Eosinophils 0.1, Absolute Basophils 0, PUBS MCHC 33.6 07/10/16 2210: Troponin I 0.27 *H 07/10/16 1632: Troponin I 0.34 *H 07/10/16 0958: Urine Color YEL, Urine Clarity HAZY H, Urine pH 6.5, Ur Specific [place] 1.020, Urine Protein 30 H, Urine Ketones NEG, Urine Nitrite NEG, Urine Bilirubin NEG, Urine Urobilinogen 1.0, Ur Leukocyte Esterase SMALL H, Ur Microscopic SEDIMENT EXAMINED, Urine RBC 5-10 H, Urine WBC 25-50 H, Ur Epithelial Cells MOD H, Urine Bacteria MOD H, Urine Hemoglobin MOD H, Urine Glucose NEG 07/10/16 0952: Anion Gap 13, Estimated GFR 60, BUN/Creatinine Ratio 26.7 H, Glucose 170 H, Calcium 8.9, Magnesium 1.8, Total Bilirubin 0.9, AST 26, ALT 33, Alkaline Phosphatase 71, Troponin I 0.04, Dmw-G-Oiyyogiqqce Pept 1610 H, Total Protein 7.0, Albumin 4.1, Globulin 2.9, Albumin/Globulin Ratio 1.4, CBC w Diff NO MAN DIFF REQ, RBC 4.49, MCV 91.1, MCH 30.4, RDW 14.9 H, MPV 8.1, Gran % 61.4, Lymphocytes % 30.6, Monocytes % 6.2, Eosinophils % 1.5, Basophils % 0.3, Absolute Granulocytes 6.6 H, Absolute Lymphocytes 3.3, Absolute Monocytes 0.7 H, Absolute Eosinophils 0.2, Absolute Basophils 0, PUBS MCHC 33.3 07/10/16 0950: Magnesium Cancelled Assessment/Plan Assessment/Plan Assessment: 1. Acute onset shortness of breath with evidence of congestive heart failure on chest x-ray and examination and mildly elevated proBNP. The patient notes that she was in atrial fibrillation when she saw Dr Jain this past week. ? diastolic CHF aggravated by recurrent atrial fibrillation (now back in NSR) 2. History of coronary artery disease, status post multiple stents. Recent cardiac catheterization showing patent stents 3. Hypertension 4. Hyperlipidemia 5. Lower extremity edema Recommendations: -Continue to monitor the patient on telemetry -Available outside records reviewed -Continue current medication regimen for now -Continue IV Lasix twice a day with maintenance of negative fluid balance and monitoring of strict intakes, outputs, daily weights. -Further plans in 24 hours -Please check follow-up laboratories in the morning including BUN, creatinine, electrolyte, magnesium, etc. Continue telemetry? Yes
--- NOTE | 2016-07-11 14:23 | PN- Att Addend ---
Attending MD Review Statement Attending Statement Attending MD Statement: examined this patient, discuss w/resident/PA/DEFENSIVE LINE COACH, agreed w/resident/PA/DEFENSIVE LINE COACH, discussed with family, reviewed EMR data (avail), discussed w/ nursing Attending Assessment/Plan: Laboratory Tests 07/11/16 0640: Anion Gap 7, Estimated GFR 60, BUN/Creatinine Ratio 25.6 H, Troponin I 0.12 *H, CBC w Diff NO MAN DIFF REQ, RBC 3.66 L, MCV 90.7, MCH 30.5, RDW 14.9 H, MPV 8.0, Gran % 59.9, Lymphocytes % 29.0, Monocytes % 8.7, Eosinophils % 1.9, Basophils % 0.5, Absolute Granulocytes 3.2, Absolute Lymphocytes 1.6, Absolute Monocytes 0.5, Absolute Eosinophils 0.1, Absolute Basophils 0, PUBS MCHC 33.6 07/10/16 2210: Troponin I 0.27 *H 07/10/16 1632: Troponin I 0.34 *H Vital Signs Date Time Temp Pulse Resp B/P B/P Pulse O2 O2 Flow FiO2 Mean Ox Delivery Rate 07/11 1148 98.1 07/11 0845 57 132/68 07/11 0844 57 132/68 07/11 0809 99.0 57 20 132/68 96 Nasal 3.0L Cannula 07/11 0040 76 96 07/11 0000 BIPAP 40% 07/10 2253 98.4 60 20 104/62 98 BIPAP 40% 07/10 2112 66 120/68 07/10 1600 Nasal 3.0L Cannula 07/10 1548 97.8 70 18 138/66 96 Patient seen and examined at bedside. Discussed with patient as well as patient 's at bedside the care plan. 80-year-old female with history of atrial fibrillation on pradaxa, history of coronary artery disease status post stenting 5-6 years ago who presented to the emergency room with chief complaint of shortness of breath and oxygen saturations in 70s in the emergency room. Patient was put on BiPAP by the EMS as well as continued on BiPAP in the emergency room on admission. Currently is off BiPAP On Nasal Cannula 3 L and Is Saturating 96%. Patient also had a bump of troponin last night and has trended down to 0.12 now. The highest troponin level was 0.34. Patient had an echocardiogram done yesterday which was showing normal ejection fraction of 60-65% and also chest x- ray was done which showed questionable CHF-like picture. Her blood culture done in the emergency room showed gram-positive cocci in one bottle and urine culture is growing gram-negative rods. We have repeated the blood cultures today as only one bottle was drawn on the previous blood culture. We started the patient on ceftriaxone for possible UTI. Patient did tell me that she has some urinary issues which she takes cranberry juice. Acute hypoxic respiratory failure secondary to CHF exacerbation likely diastolic. We will continue with diuresis with Lasix 40 mg IV daily. Patient was taking 20 mg by mouth Lasix at home. Patient went outside for lunch a day prior to admission. This may have contributed to increased salt load and causing her to go into fluid overload. Atrial fibrillation on Pradaxa- continue that and monitor on telemetry. We will DC the Motrin as patient is on Pradaxa. UTI-started patient on ceftriaxone. We'll follow up on the urine as well as blood culture. Blood cultures most likely contaminant.
[2016-07-11 15:54] VITALS: BP 128/78
[2016-07-11 22:26] VITALS: BP 146/70
--- NOTE | 2016-07-12 07:42 | PN- Housestaff ---
See Addendum Subjective Follow-up For: Acute on chronic congestive heart failure/CHF exacerbation UTI Tele-Events Since Last Visit: SB, HR 52-60 Subjective: Patient seen and examined at bedside. Resting comfortably in bed with no acute complaints except for mild pain in the legs. Reports improvement in her breathing. Feels slightly short of breath off the oxygen though. Currently satting well on 3 liters of oxygen via NC. Denies any chest pain, palpitations, lightheadedness, dizziness, abdominal pain, n/v/c/d. No acute events reported overnight. Review of Systems Constitutional: Reports: see HPI. Objective Last 24 Hrs of Vital Signs/I&O Vital Signs Date Time Temp Pulse Resp B/P B/P Pulse O2 O2 Flow FiO2 Mean Ox Delivery Rate 07/12 0831 97 Nasal 2.0L Cannula 07/12 0000 Nasal 3.0L Cannula 07/11 2226 98.9 56 20 146/70 97 Nasal Cannula 07/11 2054 58 120/62 07/11 1600 Nasal 4.0L Cannula 07/11 1554 98.2 55 22 128/78 96 Nasal 4.0L Cannula 07/11 1148 98.1 07/11 0845 57 132/68 07/11 0844 57 132/68 Intake & Output 07/12 1600 07/12 0800 07/12 0000 Intake Total 340 Output Total 1950 Balance -1610 Intake, IV 40 Intake, Oral 300 Number 0 Bowel Movements Output, Urine 1950 Physical Exam General Appearance: Alert, Oriented X3, Cooperative, No Acute Distress Other Physical Findings: Skin No Rashes HEENT Atraumatic, PERRLA, EOMI Neck Supple, No JVD Cardiovascular Regular Rate, Normal S1, Normal S2 Lungs bilateral ronchi with crackles on exam Abdomen Normal Bowel Sounds, Soft, No Tenderness Extremities Trace pitting edema (R>L) Vascular Normal Pulses Current Medications: Current Medications Sig/Allison Start time Last Medication Dose Route Stop Time Status Admin Acetaminophen 650 MG Q6P PRN 07/10 1245 AC PO Amiodarone HCl 200 MG DAILY 07/10 1345 AC 07/11 PO 0845 Atorvastatin Calcium 10 MG 1700 07/10 1700 AC 07/11 PO 1639 Ceftriaxone Sodium 1,000 MG DAILY 07/11 1000 AC 07/11 IV 1448 Dabigatran 150 MG BID 07/10 1346 AC 07/11 PO 2050 Docusate Sodium 100 MG BID PRN 07/11 0845 AC 07/11 PO 0843 Escitalopram Oxalate 20 MG DAILY 07/11 1000 AC 07/11 PO 0844 Furosemide 40 MG 7:30 AM, & 4:30 PM 07/11 0900 AC 07/12 IV 0642 Ibuprofen 600 MG Q6P PRN 07/10 1245 DC PO Levothyroxine Sodium 0.05 MG DAILY AC 07/11 0700 AC 07/12 PO 0643 Magnesium Chloride 64 MG ONCE ONE 07/12 0815 DC PO 07/12 0816 Metoprolol Tartrate 50 MG BID 07/10 1349 AC 07/11 PO 2053 Omeprazole 20 MG DAILY AC 07/11 1000 AC 07/12 PO 642 Potassium Chloride 40 MEQ ONCE ONE 07/11 0845 DC 07/11 PO 07/11 0846 1042 Last 24 Hrs of Lab/Isaac Results Last 24 Hrs of Labs/Mics: Laboratory Tests 07/12/16 0625: Anion Gap 6, Estimated GFR 60, BUN/Creatinine Ratio 23.3, Magnesium 1.9, CBC w Diff NO MAN DIFF REQ, RBC 3.76 L, MCV 90.9, MCH 30.5, RDW 15.2 H, MPV 7.9, Gran % 58.7, Lymphocytes % 29.6, Monocytes % 8.5, Eosinophils % 2.9, Basophils % 0.3, Absolute Granulocytes 3.0, Absolute Lymphocytes 1.5, Absolute Monocytes 0.4 , Absolute Eosinophils 0.1, Absolute Basophils 0, PUBS MCHC 33.5 Microbiology 07/11 1035 BLOOD: Blood Culture - RECD 07/11 1010 BLOOD: Blood Culture - RECD Assessment/Plan Assessment: Patient is a 20-year-old male with past medical history significant for congestive heart failure, atrial fibrillation, hypertension, hyperlipidemia, diabetes came worsening shortness of breath imaging study positive for congestive heart failure. Her urine grew gram-negative rods and urinalysis showed 25-50 WBCs with positive leukocyte esterase. Blood culture grew gram- positive cocci which most likely is contamination. # Acute hypoxic resp failure Reportedly hypoxic in 70s, requiring BiPAP on admission. She doesn't use any oxygen at home. Most likely 2/2 acute CHF exacerbation. Currently satting well on 3 liters of oxygen via NC. * Continue cardiac monitoring * Vitals per protocol * TRC neb tx as needed * Oxygen taper trail today * Management for CHF as below # Acute on chronic decompensated heart failure Significant resp distress and AHRF requiring BiPAP. Physical exam consistent with CHF picture (+2 pedal edema and crackles). Improving with diuresis * Continue Lasix 40mg BID IV, consider decreasing the dose today * Appreciate cardio recs * Maintain negative fluid balance. * Strict I/Os with daily weights # History of CAD/HTN/HLD Per the records obtained from [facility], patient had a cardiac catheterization performed on 06/28/2016. Cardiac catheterization showed a right dominant circulation. Angiography demonstrated a patent left main coronary artery stent. Patent stent in the mid LAD was noted. The first diagonal stent was patent. No other significant coronary disease was noted. Her ejection fraction was 60%. * Repeat echo shows EF of 60-65%. No significant abnormalities noted except for Mild aortic sclerosis with mild AR and mild to moderate MR with mild left atrial enlargement. 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 Ucx growing GNR. Bcx grew GPC in 1/2 bottles but most likely contminant. No fevers or leukocytosis since admission. * Cont IV CTX * Watch for signs of infx * Follow repeat cultures - Heart healthy diet - Mild pain pathwa - DVT prophylaxis with Pradaxa - Full code Problem List: 1. CHF (congestive heart failure) 2. UTI (urinary tract infection) 3. Back pain 4. Arthritis Pain Ratin Pain Location: Legs Pain Goal: Pain 4 or less Pain Plan: Mild path Tomorrow's Labs & Rationales: CBC - to check WBC
[2016-07-12 07:48] LABS: ABSOLUTE BASOPHIL COUNT 0 /CUMM (0.0-0.2); ABSOLUTE EOSINOPHIL COUNT 0.1 /CUMM (0.0-0.7); ABSOLUTE LYMPH COUNT 1.5 /CUMM (1.2-3.4); ABSOLUTE MONOCYTE COUNT 0.4 /CUMM (0.10-0.60); BASOPHIL % 0.3 % (0.0-2.0); EOSINOPHIL % 2.9 % (0-5); GRANULOCYTE % 58.7 % (42.2-75.2); HEMATOCRIT 34.2 % (37-47); MEAN CORPUSCULAR HGB 30.5 PG (27.0-31.0); MEAN CORPUSCULAR HGB CONC 33.5 G/DL (33.0-37.0); MEAN CORPUSCULAR VOLUME 90.9 FL (81.0-99.0); MEAN PLATELET VOLUME 7.9 FL (7.4-10.4); PLATELET COUNT 113 /CUMM (130-400); RBC DISTRIBUTION WIDTH 15.2 % (11.5-14.5); RED BLOOD CELL CT 3.76 /CUMM (4.20-5.40); WHITE BLOOD CELL COUNT 5.1 /CUMM (4.8-10.8)
[2016-07-12 08:00] VITALS: BP 128/60
--- NOTE | 2016-07-12 10:23 | PN- Cardiology ---
Subjective Subjective: The patient reports that she still has mild shortness of breath, which has been present since admission, and is gradually improving. The shortness of breath is increased with activity. No chest pain. No palpitations. No diaphoresis. No lightheadedness or dizziness. Objective Vital Signs and I&Os Vital Signs Date Time Temp Pulse Resp B/P B/P Pulse O2 O2 Flow FiO2 Mean Ox Delivery Rate 07/12 0920 140/70 07/12 0920 140/70 07/12 0831 97 Nasal 2.0L Cannula 07/12 0800 98.3 57 20 128/60 97 Nasal 2.0L Cannula 07/12 0000 Nasal 3.0L Cannula 07/11 2226 98.9 56 20 146/70 97 Nasal Cannula 07/11 2054 58 120/62 07/11 1600 Nasal 4.0L Cannula 07/11 1554 98.2 55 22 128/78 96 Nasal 4.0L Cannula 07/11 1148 98.1 Intake & Output 07/12 1600 07/12 0800 07/12 0000 07/11 1600 07/11 0800 07/11 0000 Intake Total 340 660 100 610 Output Total 1950 8473 130 7503 Balance -1610 -990 -100 -440 Intake, IV 40 0 10 Intake, Oral 300 660 100 600 Number 0 1 0 Bowel Movements Output, Urine 1950 9829 [id number] Patient 236 lb Weight Weight Lizeth Lift Measurement Method Physical Exam: Gen: The patient is in no acute distress HEENT: Normal nose, ears, and oropharynx. Pupils equal bilaterally. Conjunctiva normal. Neck: Supple with no JVD, no masses, and no thyromegaly Lungs: Few scattered rhonchi with normal respiratory effort Heart: RRR, S1, S2, no murmurs. Trace peripheral edema, 2+ pulses in the lower extremities bilaterally Abdomen: Soft, nontender, no masses. No hepatomegaly. No splenomegaly Extremities: No clubbing or cyanosis. Normal muscle strength in the upper and lower extremities Skin: Normal skin turgor with no skin ulcers or lesions noted. Neuro: Cranial nerves intact. Sensation intact Psych: Alert and oriented 3 with appropriate affect Current Medications: Current Medications Sig/Allison Start time Last Medication Dose Route Stop Time Status Admin Acetaminophen 650 MG Q6P PRN 07/10 1245 AC PO Amiodarone HCl 200 MG DAILY 07/10 1345 AC 07/12 PO 0920 Atorvastatin Calcium 10 MG 1700 07/10 1700 AC 07/11 PO 1639 Ceftriaxone Sodium 1,000 MG DAILY 07/11 1000 AC 07/12 IV 0917 Dabigatran 150 MG BID 07/10 1346 AC 07/12 PO 0919 Docusate Sodium 100 MG BID PRN 07/11 0845 AC 07/12 PO 0929 Escitalopram Oxalate 20 MG DAILY 07/11 1000 AC 07/12 PO 0919 Furosemide 40 MG 7:30 AM, & 4:30 PM 07/11 0900 AC 07/12 IV 0642 Levothyroxine Sodium 0.05 MG DAILY AC 07/11 0700 AC 07/12 PO 0643 Magnesium Chloride 64 MG ONCE ONE 07/12 0815 DC 07/12 PO 07/12 0816 0919 Metoprolol Tartrate 50 MG BID 07/10 1349 AC 07/12 PO 0920 Omeprazole 20 MG DAILY AC 07/11 1000 AC 07/12 PO 0643 Results Last 48 Hrs of Labs/Mics: Laboratory Tests 07/12/16 0625: Anion Gap 6, Estimated GFR 60, BUN/Creatinine Ratio 23.3, Magnesium 1.9, CBC w Diff NO MAN DIFF REQ, RBC 3.76 L, MCV 90.9, MCH 30.5, RDW 15.2 H, MPV 7.9, Gran % 58.7, Lymphocytes % 29.6, Monocytes % 8.5, Eosinophils % 2.9, Basophils % 0.3, Absolute Granulocytes 3.0, Absolute Lymphocytes 1.5, Absolute Monocytes 0.4 , Absolute Eosinophils 0.1, Absolute Basophils 0, PUBS MCHC 33.5 07/11/16 0640: Anion Gap 7, Estimated GFR 60, BUN/Creatinine Ratio 25.6 H, Troponin I 0.12 *H, CBC w Diff NO MAN DIFF REQ, RBC 3.66 L, MCV 90.7, MCH 30.5, RDW 14.9 H, MPV 8.0, Gran % 59.9, Lymphocytes % 29.0, Monocytes % 8.7, Eosinophils % 1.9, Basophils % 0.5, Absolute Granulocytes 3.2, Absolute Lymphocytes 1.6, Absolute Monocytes 0.5, Absolute Eosinophils 0.1, Absolute Basophils 0, PUBS MCHC 33.6 07/10/16 2210: Troponin I 0.27 *H 07/10/16 1632: Troponin I 0.34 *H Recent Imaging Studies: Chest x-ray 07/10/16: Interval development of mild diffuse prominent linear interstitial markings and nonspecific bibasilar, perihilar airspace disease, may represent CHF, infection or combination thereof. Follow-up radiograph to document resolution is recommended. Tele monitor monitor tracings are reviewed, and reveal normal sinus rhythm Echocardiogram 07/10/16: 1. Mild aortic sclerosis is present with minimal to mild aortic insufficiency. 2. MItral leaflet thickening is present with mild to moderate mitral insufficiency and mild left atrial enlargement. 3. A physiologic pericardial effusion is present. 4. The left ventricular chamber size is normal with mild Left ventricular hypertrophy and disproportionate thickening of the upper interventricular septum with a normal ejection fraction and no resting wall motion abnormlaities. 5. The right heart chambers are upper normal in size with minimal to mild tricuspid and pulmonic insufficiency and no evidence of significant pulmonary hypertension. 6. No prior study was available for comparison. EKG tracing is independently reviewed, and reveals normal sinus rhythm at 63, left axis deviation, nonspecific ST-T abnormality Assessment/Plan Assessment/Plan Assessment: 1. Acute heart failure with preserved ejection fraction, improving 2. Paroxysmal atrial fibrillation, currently in sinus rhythm 3. CAD, status post stents, stable 4. Hypertension, controlled 5. Urinary tract infection with positive blood culture Plan: * Change Lasix to 40 mg by mouth twice a day * Continue amiodarone for rhythm control * Continue Pradaxa for stroke prevention * Continue metoprolol for rate control * Antibiotics as per the medical service Continue telemetry? Yes
[2016-07-12] MEDS ORDERED: ASPIRIN81 M4 PO (14:50)
[2016-07-12] MEDS ORDERED: CIPRO500 M1 PO (14:51)
--- NOTE | 2016-07-12 14:55 | Patient Discharge Instructions ---
Discharge Instructions General Discharge Information You were seen/treated for: Acute exacerbation of heart failure Urinary tract infection Special Instructions: Please follow up with your caridologist Dr. Hurst within 1 weeks of discharge. You may choose to follow up with Dr. Torres at your preference. Follow up with your primary care physician within 1-2 weeks of discharge. Complete medications as prescribed. Take Cipro for 4 more days. Diet Continue normal diet: Yes Activity Full Activity/No Limits: Yes (as tolerated) Acute Coronary Syndrome Inclusion Criteria At DC or during hospital stay patient has or had the following: ACS DIAGNOSIS No Discharge Core Measures Meds if any: Prescribed or Continued at Discharge Meds if any: NOT Prescribed or Continued at Discharge Congestive Heart Failure Inclusion Criteria At DC or during hospital stay patient has or had the following: CHF DIAGNOSIS No Discharge Core Measures Meds if any: Prescribed or Continued at Discharge Meds if any: NOT Prescribed or Continued at Discharge Cerebrovascular accident Inclusion Criteria At DC or during hospital stay patient has or had the following: CVA/TIA Diagnosis No Discharge Core Measures Meds if any: Prescribed or Continued at Discharge Meds if any: NOT Prescribed or Continued at Discharge Venous thromboembolism Inclusion Criteria VTE Diagnosis No VTE Type NONE VTE Confirmed by (Test) NONE Discharge Core Measures - Per Current guidelines, there needs to be overlap - treatment for the first 5 days of Warfarin therapy. - If discharged on Warfarin prior to 5 days of - overlap therapy, the patient will need to be - assessed for post discharge needs including - *Post discharge parental anticoagulation - *Warfarin and/or parental anticoagulation education - *Follow up date to check INR post discharge At least 5 days overlap therapy as Inpatient No Meds if any: Prescribed or Continued at Discharge Note: Overlap Therapy is Warfarin and Anticoagulant Meds if any: NOT Prescribed or Continued at Discharge
--- NOTE | 2016-07-12 14:59 | Discharge Summary ---
Visit Information Visit Dates Admission Date: 07/10/16 Discharge Date: 07/13/16 Hospital Course Course Attending Physician: ANTON ALFARO MD Primary Care Physician: LINDEN FENG,DORIS Shen Hospital Course: Patient is a 80-year-old female with past medical history significant for congestive heart failure, atrial fibrillation, hypertension, hyperlipidemia, diabetes came worsening shortness of breath imaging study positive for congestive heart failure. Her urine grew gram-negative rods and urinalysis showed 25-50 WBCs with positive leukocyte esterase. Blood culture grew gram- positive cocci which most likely is contamination. # Acute hypoxic resp failure - resolved Reportedly hypoxic in 70s, requiring BiPAP on admission. She doesn't use any oxygen at home. Most likely 2/2 acute CHF exacerbation. Patient was slowly tapered off oxygen as she was treated for CHF as below. # Acute on chronic decompensated heart failure Significant resp distress and AHRF requiring BiPAP. Physical exam consistent with CHF picture (+2 pedal edema and crackles). ImprovED on IV Lasix 40 BID. CXR showed interval development of mild diffuse prominent linear interstitial markings and nonspecific bibasilar, perihilar airspace disease, suspiscious for CHF, infection or combination thereof. Upon discussion between attending physician Dr. Alfaro and [facility]'s outaptient raftsman Dr. Jain, she was dischaged on Lasix 40mg PO daily. HCTZ was discontinued. # History of CAD/HTN/HLD Per the records obtained from [place], patient had a cardiac catheterization performed on 06/28/2016. Cardiac catheterization showed a right dominant circulation. Angiography demonstrated a patent left main coronary artery stent. Patent stent in the mid LAD was noted. The first diagonal stent was patent. No other significant coronary disease was noted. Her ejection fraction was 60%. Repeat echo showed EF of 60-65%. No significant abnormalities noted except for Mild aortic sclerosis with mild AR and mild to moderate MR with mild left atrial enlargement. Patient was kept on statin, Lopressor at home dose. She was diuresed as above. # History of Afib Rate was well controlled. She was kept on Pradaxa, Lopressor, and amiodarone at home doses. 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 Ucx grew Klebsiella sesitive to cefazolin and Cipro. Bcx grew GPC in 1/2 bottles but this was attributed to contamination. No fevers or leukocytosis throughout the hospitalization. Kanet was started on IV CTX and discharged on Cipro 250mg PO BID to complete a total course f 7 days. Patient had a prolonged QTc close to 500 so Cipro was kept at minimal doses as she was already on amiodarone. Allergies: Coded Allergies: No Known Allergies (03/23/16) Disposition Summary Disposition Principal Diagnosis: CHF exacerbation Additional Diagnosis: UTI Discharge Disposition: home health services Discharge Instructions General Discharge Information Code Status: Full Code Patient's Diet: Heart healthy Patient's Activity: As tolerated Follow-Up Instructions/Appts: Please follow up with your caridologist Dr. Hurst within 1 weeks of discharge. You may choose to follow up with Dr. Torres at your preference. Follow up with your primary care physician within 1-2 weeks of discharge. Complete medications as prescribed. Take Cipro for 4 more days. Medications at Discharge Discharge Medications: Stop taking the following medications: Hydrochlorothiazide (Hydrochlorothiazide) 25 MG TABLET ORAL DAILY Qty = 90 Furosemide (Furosemide) 20 MG TABLET ORAL DAILY Qty = 30 Sulfamethoxazole/Trimethoprim (Bactrim 400-80 MG Tablet) 1 EACH TABLET ORAL DAILY Qty = 30 Nitrofurantoin Monohyd/M-Cryst (Macrobid 100 MG Capsule) 100 MG CAPSULE ORAL TWICE DAILY Qty = 14 Continue taking these medications: Simvastatin (Simvastatin*) 20 MG TABLET 1 Tablet ORAL Every night Qty = 90 Instructions: TOOK ATORVASTATIN WHILE ADMITED LAST 07/12/16 @ 1554 Comments: PER PT Dabigatran Etexilate Mesylate (Pradaxa 150 MG) 150 MG CAPSULE 1 Capsule ORAL TWICE DAILY Qty = 60 Instructions: LAST GIVEN 07/13/16 @ 0843 Comments: PER PT Metoprolol Succinate (Metoprolol Succinate) 50 MG TAB.ER.24H 1 Tablet ORAL DAILY Qty = 180 Instructions: LAST GIVEN 07/13/16 @ 0844 Comments: PER PT Levothyroxine Sodium (Levothyroxine Sodium) 25 MCG TABLET 2 Tablet ORAL DAILY Qty = 30 Instructions: LAST GIVEN 07/13/16 2 0654 Comments: PER PT Escitalopram Oxalate (Escitalopram Oxalate) 20 MG TABLET 1 Tablet ORAL DAILY Qty = 90 Instructions: LAST GIVEN 07/13/16 @0843 Comments: PER PT Amiodarone HCl (Amiodarone HCl) 200 MG TABLET 1 Tablet ORAL DAILY Qty = 60 Instructions: LAST GIVEN 07/13/16 @ 0843 Comments: PER PT Solifenacin Succinate (Vesicare) 10 MG TABLET 1 Tablet ORAL DAILY Qty = 90 Instructions: NOT TAKEN WHILE ADMITED Comments: PER PT Ammonium Lactate (Ammonium Lactate) 140 GM CREAM..G. 1 Application On the skin TWICE DAILY Qty = 140 Comments: PER PT Ketoconazole (Nizoral) 120 ML SHAMPOO 1 Percent On the skin TWICE DAILY Qty = 1 Oxycodone HCl (Oxycodone HCl) 5 MG TABLET 1-2 Tablet ORAL EVERY 8 HOURS NEEDED as needed for PAIN Qty = 15 Oxycodone HCl/Acetaminophen (Percocet 5-325 MG Tablet) 5 MG-325 MG TABLET 1-2 Tablet ORAL EVERY 8 HOURS NEEDED as needed for PAIN Qty = 20 Start taking the following new medications: Aspirin (Aspirin*) 81 MG TAB.CHEW 81 Milligram ORAL DAILY Qty = 30 No Refills Comments: LAST TAKEN 07/13/16 @ 0842 Ciprofloxacin HCl (Ciprofloxacin HCl) 250 MG TABLET 250 Milligram ORAL TWICE DAILY Days = 4 No Refills Comments: LAST TAKEN 07/13/16 @ 1018 Furosemide (Lasix) 40 MG TABLET 1 Tablet ORAL DAILY Qty = 30 No Refills Instructions: Needs bloodwork check in a week during a doctor's visit. Comments: LAST TAKEN @ 0654 Copies To: LINDEN FENG,DORIS Shen; DEMI FENG,MARIA D Thomas MD Review Statement Documenting Attending: ANTON ALFARO MD Other Findings: The patient was seen and discussed with house staff. Agree with the plan of care upon discharge. Spoke with Dr. Myers who will follow patient closely on increased dose of furosemide.
[2016-07-12 15:30] VITALS: BP 124/62
[2016-07-13 01:13] VITALS: BP 118/56
--- NOTE | 2016-07-13 06:41 | PN- Housestaff ---
See Addendum Subjective Follow-up For: Acute on chronic congestive heart failure/CHF exacerbation UTI Tele-Events Since Last Visit: SB 50-60s Subjective: Patient seen and examined at bedside. No acute events reported overnight. Resting comfortably in bed with no acute complaints. Currently satting well on 1 liter of oxygen via NC. Denies any chest pain, palpitations, lightheadedness, dizziness, abdominal pain, n/v/c/d. Review of Systems Constitutional: Reports: see HPI. Objective Last 24 Hrs of Vital Signs/I&O Vital Signs Date Time Temp Pulse Resp B/P B/P Pulse O2 O2 Flow FiO2 Mean Ox Delivery Rate 07/13 0113 98.4 55 20 118/56 95 Nasal Cannula 07/13 0000 92 Nasal 1.0L Cannula 07/12 2101 62 124/62 07/12 1530 98.1 62 20 12462 95 Nasal 2.0L Cannula 07/12 0920 140/70 07/12 0920 140/70 07/12 0831 97 Nasal 2.0L Cannula Intake & Output 07/13 1600 07/13 0800 07/13 0000 Intake Total 300 120 Output Total 350 Balance -50 120 Intake, Oral 300 120 Output, Urine 350 Patient 101.151 kg Weight Weight Chair scale Measurement Method Physical Exam General Appearance: Alert, Oriented X3, Cooperative, No Acute Distress Other Physical Findings: Skin No Rashes HEENT Atraumatic, PERRLA, EOMI Neck Supple, No JVD Cardiovascular Regular Rate, Normal S1, Normal S2 Lungs bilateral ronchi with crackles on exam Abdomen Normal Bowel Sounds, Soft, No Tenderness Extremities No edema Vascular Normal Pulses Current Medications: Current Medications Sig/Allison Start time Last Medication Dose Route Stop Time Status Admin Acetaminophen 650 MG Q6P PRN 07/10 1245 AC PO Amiodarone HCl 200 MG DAILY 07/10 1345 AC 07/12 PO 0920 Aspirin 81 MG DAILY 07/12 1320 AC 07/12 PO 1554 Atorvastatin Calcium 10 MG 1700 07/10 1700 AC 07/12 PO 1554 Ceftriaxone Sodium 1,000 MG DAILY 07/11 1000 DC 07/12 IV 0917 Ciprofloxacin 500 MG BID 07/13 1000 UNVr PO 07/17 0959 Dabigatran 150 MG BID 07/10 1346 AC 07/12 PO 2100 Docusate Sodium 100 MG .STK-MED ONE 07/12 0929 DC PO 07/12 0930 Docusate Sodium 100 MG BID PRN 07/11 0845 AC 07/12 PO 0929 Escitalopram Oxalate 20 MG DAILY 07/11 1000 AC 07/12 PO 0919 Furosemide 40 MG 7:30 AM, & 4:30 PM 07/12 1630 AC 07/13 PO 0654 Furosemide 40 MG 7:30 AM, & 4:30 PM 07/11 0900 DC 07/12 IV 0642 Levothyroxine Sodium 0.05 MG DAILY AC 07/11 0700 AC 07/13 PO 0654 Metoprolol Tartrate 50 MG BID 07/10 1349 AC 07/12 PO 2101 Omeprazole 20 MG DAILY AC 07/11 1000 AC 07/13 PO 0654 Potassium Chloride 20 MEQ ONCE ONE 07/12 1830 DC 07/12 PO 07/12 1831 2100 Last 24 Hrs of Lab/Isaac Results Last 24 Hrs of Labs/Mics: Laboratory Tests 07/13/16 0606: Anion Gap 7, Estimated GFR 53 L, BUN/Creatinine Ratio 27.0 H, Magnesium 1.9 Assessment/Plan Assessment: Patient is a 20-year-old male with past medical history significant for congestive heart failure, atrial fibrillation, hypertension, hyperlipidemia, diabetes came worsening shortness of breath imaging study positive for congestive heart failure. Her urine grew gram-negative rods and urinalysis showed 25-50 WBCs with positive leukocyte esterase. Blood culture grew gram- positive cocci which most likely is contamination. # Acute hypoxic resp failure Reportedly hypoxic in 70s, requiring BiPAP on admission. She doesn't use any oxygen at home. Most likely 2/2 acute CHF exacerbation. Currently satting well on 3 liters of oxygen via NC. * Continue cardiac monitoring * Vitals per protocol * TRC neb tx as needed * Oxygen taper trail * Management for CHF as below # Acute on chronic decompensated heart failure Significant resp distress and AHRF requiring BiPAP. Physical exam consistent with CHF picture (+2 pedal edema and crackles). Improving with diuresis * Discharge on Lasix 40mg PO daily (d/c HCTZ) * Appreciate cardio recs * Maintain negative fluid balance. * Strict I/Os with daily weights # History of CAD/HTN/HLD Per the records obtained from [place], patient had a cardiac catheterization performed on 06/28/2016. Cardiac catheterization showed a right dominant circulation. Angiography demonstrated a patent left main coronary artery stent. Patent stent in the mid LAD was noted. The first diagonal stent was patent. No other significant coronary disease was noted. Her ejection fraction was 60%. * Repeat echo shows EF of 60-65%. No significant abnormalities noted except for Mild aortic sclerosis with mild AR and mild to moderate MR with mild left atrial enlargement. 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 Ucx growing GNR. Bcx grew GPC in 1/2 bottles but most likely contminant. No fevers or leukocytosis since admission. * Cont IV CTX * Watch for signs of infx * Follow repeat cultures - Heart healthy diet - Mild pain pathwa - DVT prophylaxis with Pradaxa - Full code Problem List: 1. UTI (urinary tract infection) 2. CHF (congestive heart failure) 3. Back pain 4. Arthritis Pain Ratin Pain Location: 0 Pain Goal: Remain pain free Pain Plan: Mild path Tomorrow's Labs & Rationales: None None
[2016-07-13 08:21] VITALS: BP 120/56
[2016-07-13 08:44] VITALS: BP 120/56
[2016-07-13] MEDS ORDERED: CIPROFLOXACIN250 M1 PO (09:07)
[2016-07-13] MEDS ORDERED: LASIX40 M1 PO ×2 (09:10→09:28)
--- NOTE | 2016-07-13 13:14 | PN- Cardiology ---
Subjective Subjective: Clinically doing better. Cardiac status stable. Objective Vital Signs and I&Os Vital Signs Date Time Temp Pulse Resp B/P B/P Pulse O2 O2 Flow FiO2 Mean Ox Delivery Rate 07/13 0844 52 120/56 07/13 0843 52 120/56 07/13 0821 99.8 52 20 120/56 93 07/13 0113 98.4 55 20 118/56 95 Nasal Cannula 07/13 0000 92 Nasal 1.0L Cannula 07/12 2101 62 124/62 07/12 1530 98.1 62 20 124/62 95 Nasal 2.0L Cannula Intake & Output 07/13 1600 07/13 0800 07/13 0000 07/12 1600 07/12 0800 07/12 0000 Intake Total 300 120 400 340 Output Total 350 2800 1950 Balance -50 120 -2400 -1610 Intake, IV 40 Intake, Oral 300 120 400 300 Number 0 Bowel Movements Output, Urine 350 2800 1950 Patient 223 lb Weight Weight Chair scale Measurement Method Current Medications: Current Medications Sig/Allison Start time Last Medication Dose Route Stop Time Status Admin Acetaminophen 650 MG Q6P PRN 07/10 1245 AC PO Amiodarone HCl 200 MG DAILY 07/10 1345 AC 07/13 PO 0843 Aspirin 81 MG DAILY 07/12 1320 AC 07/13 PO 0842 Atorvastatin Calcium 10 MG 1700 07/10 1700 AC 07/12 PO 1554 Ceftriaxone Sodium 1,000 MG DAILY 07/11 1000 DC 07/12 IV 0917 Ciprofloxacin 250 MG BID 07/13 1000 AC 07/13 PO 07/17 0959 1018 Dabigatran 150 MG BID 07/10 1346 AC 07/13 PO 0843 Docusate Sodium 100 MG BID PRN 07/11 0845 AC 07/13 PO 0843 Escitalopram Oxalate 20 MG DAILY 07/11 1000 AC 07/13 PO 0843 Furosemide 40 MG 7:30 AM, & 4:30 PM 07/12 1630 AC 07/13 PO 0654 Levothyroxine Sodium 0.05 MG DAILY AC 07/11 0700 AC 07/13 PO 0654 Metoprolol Tartrate 50 MG BID 07/10 1349 AC 07/13 PO 0844 Omeprazole 20 MG DAILY AC 07/11 1000 AC 07/13 PO 0654 Potassium Chloride 20 MEQ ONCE ONE 07/12 1830 DC 07/12 PO 07/12 1831 2100 Results Last 48 Hrs of Labs/Mics: Laboratory Tests 07/13/16 0606: Anion Gap 7, Estimated GFR 53 L, BUN/Creatinine Ratio 27.0 H, Magnesium 1.9 07/12/16 0625: Anion Gap 6, Estimated GFR 60, BUN/Creatinine Ratio 23.3, Magnesium 1.9, CBC w Diff NO MAN DIFF REQ, RBC 3.76 L, MCV 90.9, MCH 30.5, RDW 15.2 H, MPV 7.9, Gran % 58.7, Lymphocytes % 29.6, Monocytes % 8.5, Eosinophils % 2.9, Basophils % 0.3, Absolute Granulocytes 3.0, Absolute Lymphocytes 1.5, Absolute Monocytes 0.4 , Absolute Eosinophils 0.1, Absolute Basophils 0, PUBS MCHC 33.5 Assessment/Plan Assessment/Plan Assessment: 1. Acute onset shortness of breath with evidence of congestive heart failure on chest x-ray and examination and mildly elevated proBNP. The patient notes that she was in atrial fibrillation when she saw Dr Jain this past week. ? diastolic CHF aggravated by recurrent atrial fibrillation (now back in NSR) 2. History of coronary artery disease, status post multiple stents. Recent cardiac catheterization showing patent stents 3. Hypertension 4. Hyperlipidemia 5. Lower extremity edema Recommendations: -Continue current medication regimen for now -Transition to oral diuretic regimen. The patient's stat either hydrochlorothiazide or Lasix once daily. The patient should not take both diuretics. -The patient should follow-up with her primary avid editor Dr. Jain within one week post discharge. Further decisions about her management, diuretic management, etc. at that time.
--- NOTE | 2016-07-13 14:37 | NUR ---
LATE ENTRY - PATIENT WAS AMBULATED THIS AM ON RA @ 300 FEET. O2 SATURATION WAS 92-95% ON RA AFTER AMBULATION. PT WAS NOT DISCHARGED ON NOLA/ARB PER AUTO BODY CUSTOMIZER.
== END 2016-07-13 13:20 | disposition home health service (06) | DRG 291 ==
LOC: ERH 09:36 → 1NO 10:56 → ERHI 10:56 → CANRESERV 12:22 → ENRESERV 12:22 → ENTRNSPT 12:52 → ENRESERV 13:03 → 1NO 13:25 → CMPTRNSPT 13:52 → 1NO 07-12 09:05 → ENPENDDIS 07-13 09:18 → 1NO 07-13 13:20
PROVIDERS: Emergency Medicine; Internal Medicine; Student in an Organized Health Care Education/Training Program; ADMIT Internal Medicine
DX: I11.0 Hypertensive heart disease with heart failure (principal); J96.01 Acute respiratory failure with hypoxia; N39.0 Urinary tract infection, site not specified; I48.91 Unspecified atrial fibrillation; Z79.01 Long term (current) use of anticoagulants; I50.33 Acute on chronic diastolic (congestive) heart failure; E66.9 Obesity, unspecified; Z68.34 Body mass index [BMI] 34.0-34.9, adult; I25.10 Atherosclerotic heart disease of native coronary artery without angina pectoris; Z95.5 Presence of coronary angioplasty implant and graft; E78.5 Hyperlipidemia, unspecified; R32 Unspecified urinary incontinence; E03.9 Hypothyroidism, unspecified; R60.0 Localized edema
CPT/HCPCS: 1NP; 36415; 81001; 82436; 87040; 87086; 87147; 93005; 93010; 93306; 94799; 97110-GO; 97116-GO; 97161-GP; 99291; J0696; J1940; J3490

== ENCOUNTER 2017-06-02 17:14 | Emergency (ER) | payer OTHER ==
[~2017-06-02] VITALS: Ht 176.5 cm; Wt 100.2 kg
[~2017-06-02 17:14] MED LIST changes: +ASPIRIN81 M4 PO; +CIPRO500 M1 PO; +CIPROFLOXACIN250 M1 PO; +LASIX40 M1 PO
[2017-06-02 17:18] VITALS: BP 160/82
--- NOTE | 2017-06-02 18:22 | RADIOLOGY REPORT ---
EXAMINATION: LEFT FOOT 3 VIEWS CLINICAL INFORMATION: Left foot pain following crush injury. COMPARISON: 12/10/2011. TECHNIQUE: AP, lateral, oblique views of the left foot were obtained. FINDINGS: There is diffuse soft tissue swelling to the left foot. There is pes planus. There are no acute fractures. There is a moderate plantar surface calcaneal spur. There is penciling to the third and fourth proximal phalanges. This is chronic and unchanged from prior exam. IMPRESSION: Diffuse soft tissue swelling. Stable chronic changes and moderate plantar surface calcaneal spur.
[2017-06-02] MEDS ORDERED: KEFLEX500 M1 PO (18:35)
--- NOTE | 2017-06-02 18:36 | ED ANKLE/FOOT INJURY COMPLAINT ---
History of Present Illness General Chief Complaint: Foot or Ankle Injury Stated Complaint: PT BIG TOE POSSIBLE BROKEN ON THE LT FOOT Source: patient Exam Limitations: no limitations Vital Signs & Intake/Output Vital Signs & Intake/Output Vital Signs Date Time Temp Pulse Resp B/P B/P Pulse O2 O2 Flow FiO2 Mean Ox Delivery Rate 06/02 1718 96.9 62 18 160/82 96 Room Air Room Air Allergies Coded Allergies: No Known Allergies (03/23/16) Reconcile Medications Amiodarone (Cordarone) 200 MG TABLET 1 TAB PO DAILY HEART (Reported) LAST GIVEN 07/13/16 @ 0843 Ammonium Lactate 140 GM CREAM..G. 1 ARTURO TOP BID FEET (Reported) Aspirin (Aspirin*) 81 MG TAB.CHEW 81 MG PO DAILY HEART Cephalexin (Keflex) 500 MG CAPSULE 1 CAP PO TID cellulitis Ciprofloxacin HCl 250 MG TABLET 250 MG PO BID UTI Dabigatran Etexilate Mesylate (Pradaxa 150 MG) 150 MG CAPSULE 1 CAP PO BID BLOOD THINNER (Reported) LAST GIVEN 07/13/16 @ 0843 Escitalopram Oxalate 20 MG TABLET 1 TAB PO DAILY MENTAL HEALTH (Reported) LAST GIVEN 07/13/16 @0843 Furosemide (Lasix) 40 MG TABLET 1 TAB PO DAILY DIURETIC Needs bloodwork check in a week during a doctor's visit. Ketoconazole (Nizoral) 120 ML SHAMPOO 1 % TOP BID RASH Levothyroxine Sodium 25 MCG TABLET 2 TAB PO DAILY THYROID (Reported) LAST GIVEN 07/13/16 2 0654 Metoprolol Succinate 50 MG TAB.ER.24H 1 TAB PO DAILY BP (Reported) LAST GIVEN 07/13/16 @ 0844 Oxycodone HCl 5 MG TABLET 1-2 TAB PO Q8P PRN PAIN Oxycodone HCl/Acetaminophen (Percocet 5-325 MG Tablet) 5 MG-325 MG TABLET 1-2 TAB PO Q8P PRN PAIN Simvastatin (Simvastatin*) 20 MG TABLET 1 TAB PO QPM CHOLESTEROL (Reported) TOOK ATORVASTATIN WHILE ADMITED LAST 07/12/16 @ 1554 Solifenacin Succinate (Vesicare) 10 MG TABLET 1 TAB PO DAILY BLADDER ( Reported) NOT TAKEN WHILE ADMITED Triage Note: PT TO ED WITH C/O "MY HUSBANDS WHEELCHAIR RAN OVER MY LEFT BIG TOE", INJURY HAPPENED YESTERDAY. PT AMBULATORY INTO TRIAGE WITH ROLLING WALKER, GAIT STABLE. SAVANNAH FU IN TRIAGE FOR EVAL. Triage Nurses Notes Reviewed? yes Occurred: just prior to arrival Duration: day(s): (1), constant Timing: recent history Severity: mild, moderate Pain/Injury Location: Left: Foot. No Modifying Factors: none HPI: 81-year-old female comes into the emergency room with left great toe pain. Patient reports that yesterday her rolled over her toe with his wheelchair. She's been experiencing some sharp throbbing pain. She has some associated swelling and some redness to the area. Denies any fever chills vomiting. She has seen Dr. Gilliam in the past. She comes in for further evaluation. (Cristino Lang) Past History Travel History Traveled to [place] past 21 day No Medical History Any Pertinent Medical History? 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 Hx Contributory? No (Cristino Lang) Review of Systems Review of Systems Constitutional: Reports: no symptoms. EENTM: Reports: no symptoms. Respiratory: Reports: no symptoms. Cardiovascular: Reports: no symptoms. GI: Reports: no symptoms. Genitourinary: Reports: no symptoms. Musculoskeletal: Reports: see HPI. Skin: Reports: no symptoms. Neurological/Psychological: Reports: no symptoms. Hematologic/Endocrine: Reports: no symptoms. Immunologic/Allergic: Reports: no symptoms. All Other Systems: Reviewed and Negative (Cristino Lang) Physical Exam Physical Exam General Appearance: well developed/nourished, mild distress Head: atraumatic Eyes: Bilateral: normal appearance. Ears, Nose, Throat: normal ENT inspection, hearing grossly normal Neck: normal inspection Cardiovascular/Respiratory: no respiratory distress Back: normal inspection Leg/Knee/Thigh Left: normal inspection Ankle Left: normal inspection Foot Left: soft tissue tenderness to left great toe, some mild erythema, warmth, capRefill intact in all toes, calluses on feet, Neuro/Vascular: normal motor function, normal sensation Tendon: normal tendon function Psychiatric: awake, alert, oriented x 3 Skin: intact, normal color, warm/dry (Cristino Lang) Progress Differential Diagnosis: cellulitis, fracture, dislocation, sprain, contusion Plan of Care: 06/02/2017 7:04:24 PM Patient clinically looks well. Patient is no apparent distress. Patient is nontoxic-appearing. No evidence of acute fracture. Questionable early cellulitis. Started on Keflex. Referred to skeet operator. Diagnostic Imaging: Viewed by Me: Radiology Read. Discussed w/RAD: Radiology Read. Radiology Impression: PATIENT: LENNY RIZZO PRESENT AGE: 81 PATIENT ACCOUNT NO: [id number] : 33 LOCATION: [facility] ORDERING PHYSICIAN: Lucinda FU SERVICE DATE: 06/02/17 EXAM TYPE: RAD - XRY-FOOT COMPLETE, LEFT EXAMINATION: LEFT FOOT 3 VIEWS CLINICAL INFORMATION: Left foot pain following crush injury. COMPARISON: 12/10/2011. TECHNIQUE: AP, lateral, oblique views of the left foot were obtained. FINDINGS: There is diffuse soft tissue swelling to the left foot. There is pes planus. There are no acute fractures. There is a moderate plantar surface calcaneal spur. There is penciling to the third and fourth proximal phalanges. This is chronic and unchanged from prior exam. IMPRESSION: Diffuse soft tissue swelling. Stable chronic changes and moderate plantar surface calcaneal spur. 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 <Electronically signed in Other Vendor System> SIGNED BY: Tyler Martin MD 06/02/171821 (Cristino Lang) Departure Departure Disposition: HOME OR SELF CARE Condition: Stable Clinical Impression Primary Impression: Contusion of left foot Secondary Impressions: Cellulitis of foot Referrals: Rozina FENG,Shane Shen (PCP/Family) Additional Instructions: Take Keflex as prescribed. Follow-up with skeet operator. Return if any concerns worsening symptoms. Please go over all results of today's visit with your primary care doctor. Contact your primary care doctor to let them know you were here in the emergency room. There may be nonspecific findings which may not be related to your visit today here in the emergency room but may require further evaluation and chronic monitoring by your primary care doctor. If you had a laceration today the chance of foreign body always remains. You should follow-up with your primary care doctor for recheck in 3-5 days for a wound check. If you had an x-ray done there is a chance that a fracture could have been missed on initial read and you should follow-up with your primary care doctor for repeat x-rays if symptoms persist. If your blood pressure was elevated here in the emergency room please have rechecked by [facility] primary care doctor within the next 48. If you were prescribed a narcotic here in the emergency room or any type of controlled substances you're not allowed to drive while taking this medication or operate any type of heavy machinery. Narcotics can make you feel lightheaded dizziness nausea and can cause constipation. You may need to diamond picker a stool softener. Thank you for choosing [facility] emergency room. Please return to the emergency room immediately if you have any other concerns worsening of symptoms. Departure Forms: Customer Survey General Discharge Information Prescriptions: Current Visit Scripts Cephalexin (Keflex) 1 CAP PO TID #21 CAP (Cristino Lang) PA/PIPER HELPER Co-Sign Statement Statement: ED Attending supervision documentation- [X] I saw and evaluated the patient. I have also reviewed all the pertinent lab results and diagnostic results. I agree with the findings and the plan of care as documented in the PA's/PIPER HELPER's documentation. [X] I have reviewed the ED Record and agree with the PA's/PIPER HELPER's documentation. [] Additions or exceptions (if any) to the PAs/PIPER HELPER's note and plan are summarized below: [] (Tricia FENG,Kevin Weinberg)
== END 2017-06-02 18:53 ==
LOC: ERH 17:14
DX: S90.32XA Contusion of left foot, initial encounter (principal); L03.116 Cellulitis of left lower limb; W23.0XXA Caught, crushed, jammed, or pinched between moving objects, initial encounter; Y92.9 Unspecified place or not applicable; Y93.9 Activity, unspecified
CPT/HCPCS: 73630-LT